=== PATIENT | female | born 1985 | race Caucasian/White ===

== ENCOUNTER 2018-05-24 21:39 | Emergency (ER) | payer SELFPAY ==
[2018-05-24] MEDS ORDERED: Sodium Chloride 0.9% 1,000 ML IV ONE (22:17)
--- NOTE | 2018-05-24 22:39 | PCM.RRT ---
INFO PRINT PRESS OPERATOR Nurses Assessment - Situation Date: 05/24/18 INFO PRINT PRESS OPERATOR Location:: Psych INFO PRINT PRESS OPERATOR Reason for Call: Change in Mental Status INFO PRINT PRESS OPERATOR Called By: RN IMagenReason for INFO PRINT PRESS OPERATOR - A) Acute Change in Patient: (Select all that apply): Staff member or family is worried about patient ( patient fainted ) - Neurological Status (Select all that apply): Alert, Responsive, Oriented, Verbal, Follows Commands - Respiratory Oxygen Delivery Method: Room Air - Constitutional Appears: Non-toxic, No Acute Distress, Agitated (crying) - Head Head Exam: ATRAUMATIC (non-tender), NORMOCEPHALIC - Eyes Eye Exam: Normal appearance. absent: Scleral icterus - Respiratory Exam Respiratory Exam: NORMAL BREATHING PATTERN. 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 While she was working, she was reaching to pour water for a patient when she felt dizzy and then syncopized. She landed on the right side of her face, per the [facility] patient that witnessed the fall. She states that she feels fine and is no longer dizzy. Denies any pain. She is upset because her blood pressure is elevated at 150/101. Patient was AAOx3. Decision was made to transfer patient to ED for further testing. Patient transported down to ED by wheel chair. Ramon Love PGY2
[2018-05-24 22:52] LABS: BASO % 0.4 % (0.0-2.0); EOS # 0.1 K/uL (0.0-0.7); EOS % 1.1 % (0.0-4.0); HEMOGLOBIN 10.5 g/dL (11.0-16.0); LYMPH # 2.6 K/uL (1.0-4.3); LYMPH % 29.9 % (20.0-40.0); MEAN CELL VOLUME 82.6 fL (81.0-99.0); MEAN CORPUSCULAR HEMOGLOBIN 28.9 pg (27.0-31.0); MEAN PLATELET VOLUME 8.8 fL (7.2-11.7); MONO # 0.5 K/uL (0.0-0.8); MONO % 6.2 % (0.0-10.0); NEUT # 5.4 K/uL (1.8-7.0); NEUT % 62.4 % (50.0-75.0); NRBC % 0.1 % (0.0-2.0); RBC 3.62 Mil/uL (3.80-5.20); RED CELL DISTRIBUTION WIDTH 14.4 % (11.5-14.5); WHITE BLOOD COUNT 8.7 K/uL (4.8-10.8)
[2018-05-24 23:04] LABS: ALB/GLOB RATIO 1.1 (1.0-2.1); ALBUMIN 3.5 g/dL (3.5-5.0); ALT/SGPT 23 U/L (9-52); AST/SGOT 11 U/L (14-36); BLOOD UREA NITROGEN 10 mg/dL (7-17); CALCIUM 8.9 mg/dl (8.6-10.4); GFR NON-AFRICAN AMERICAN > 60
[2018-05-24 23:14] VITALS: RESP 16
[2018-05-25 01:05] VITALS: BP 117/74; PULSE 85; TEMP 97.4; O2SAT 99
--- NOTE | 2018-05-25 05:05 | C.PDOC ---
History Of Present Illness 32 year old female presents to the ED for evaluation after she had a syncopal episode today. Patient works at [employer] and her syncopal episode was witnessed. Patient regained consciousness within a few seconds. She currently states that she feels "tired." Patient is currently 20 weeks ; she is . Patient has had full LAND LEASING EXAMINER follow up for with no complications. She denies headache, chest pain, shortness of breath. Chief Complaint (Nursing): Syncope History Per: Patient History/Exam Limitations: no limitations Onset/Duration Of Symptoms: Hrs Current Symptoms Are (Timing): Better Number Of Syncopal Episodes: 1 Associated Symptoms Preceding Syncopal Episode: No Predromal Symptoms (Sudden Onset) Additional History Per: Patient Past Medical History Reviewed: Historical Data, Nursing Documentation, Vital Signs Vital Signs: Last Vital Signs Temp 97.4 F L 05/25/18 01:04 Pulse 85 05/25/18 01:04 Resp 16 05/25/18 01:04 BP 117/74 05/25/18 01:04 Pulse Ox 99 05/25/18 05:08 - Medical History PMH: No Chronic Diseases Denies: Chronic Kidney Disease Surgical History: No Surg Hx Family History: States: Unknown Family Hx - Social History Hx Alcohol Use: No Hx Substance Use: No - Immunization History Hx Tetanus Toxoid Vaccination: No Hx Influenza Vaccination: Yes Hx Pneumococcal Vaccination: No Review Of Systems Cardiovascular: Negative for: Chest Pain Respiratory: Negative for: Shortness of Breath Neurological: Positive for: Other (syncope ). Negative for: Headache Physical Exam - Physical Exam Appears: Non-toxic, No Acute Distress Skin: Normal Color, Warm, Dry Head: Atraumatic, Normacephalic Eye(s): bilateral: Normal Inspection Oral Mucosa: Moist Neck: Supple Chest: Symmetrical, No Deformity, No Tenderness Cardiovascular: Rhythm Regular, No Murmur Respiratory: Normal Breath Sounds, No Rales, No Rhonchi, No Wheezing Gastrointestinal/Abdominal: Soft, No Tenderness, No Guarding, No Rebound Extremity: Normal ROM, Capillary Refill (less than 2 seconds ) Neurological/Psych: Oriented x3, Normal Speech, Normal Cognition ED Course And Treatment - Laboratory Results Result Diagrams: 05/24/18 22:46 05/24/18 22:46 O2 Sat by Pulse Oximetry: 99 (on RA) Pulse Ox Interpretation: Normal Medical Decision Making Medical Decision Making: Impression: 32 year old female s/p syncopal episode Progress: Bloodwork, urinalysis, OB ultrasound, EKG ordered and reviewed. IV fluids given. heart tone found to be 143 (performed by me). On re-exam, patient is resting comfortably, showing no signs of distress and reports an improvement in her symptoms. Patient is stable for discharge. She is advised to follow up with her LAND LEASING EXAMINER within 1-2 days for further evaluation and/ or return to the ED if symptoms persist or worsen. Disposition - Disposition Referrals: [facility], [Non-Staff] - Disposition: HOME/ ROUTINE Disposition Time: 01:00 Condition: IMPROVED Additional Instructions: WESLEY QUIROZ, thank you for letting us take care of you today. The emergency medical care you received today was directed at your acute symptoms. If you were prescribed any medication, please fill it and take as directed. It may take several days for your symptoms to resolve. Return to the Emergency Department if your symptoms worsen, do not improve, or if you have any other problems. Please contact your doctor or call one of the physicians/clinics you have been referred to that are listed on the Patient Visit Information form that is included in your discharge packet. Bring any paperwork you were given at discharge with you along with any medications you are taking to your follow up visit. Our treatment cannot replace ongoing medical care by a primary care provider outside of the emergency department. Thank you for allowing the [facility] team to be part of your care today. You were dehydrated. Please continue to drink fluids throughout the day to maintain hydration. Follow up with your LAND LEASING EXAMINER doctor in 2-3 days for re-evaluation and further management. Instructions: Syncope (Fainting) (DC), - The Fifth Month Forms: Giveter (Korean), Work Excuse - Clinical Impression Clinical Impression: Syncope - Scribe Statement The provider has reviewed the documentation as recorded by the Scribe (Mary Jane Clement) Provider Attestation: All medical record entries made by the Scribe were at my direction and personally dictated by me. I have reviewed the chart and agree that the record accurately reflects my personal performance of the history, physical exam, medical decision making, and the department course for this patient. I have also personally directed, reviewed, and agree with the discharge instructions and disposition.
--- NOTE | 2018-05-25 09:16 | US ---
Date of service: 05/24/2018 PROCEDURE: Obstetrical ultrasound examination HISTORY: syncopy COMPARISON: Not available TECHNIQUE: Transabdominal and transvaginal FINDINGS: The examination demonstrates a single live intrauterine gestation in vertex presentation. The heart rate is 141 beats per minute. A normal quantity of amniotic fluid is visualized. A normal posterior placenta is identified. There is no evidence of placenta previa. The cervix is closed and measures 4.3 cm in length. biometry yields a gestational age of 22 weeks 2 days. AMANDA by ultrasound is 09/25/2018. The EFW is 477.63 g. Limited review of anatomy demonstrates fluid distending the stomach and urinary bladder. Two normal kidneys are demonstrated without evidence of hydronephrosis. A three-vessel umbilical cord is demonstrated. The anterior abdominal wall is intact. There is no abnormality of the spine demonstrated. IMPRESSION: Single live intrauterine gestation of approximately 22 weeks 2 days gestational age without gross anatomic abnormality. Full anatomic evaluation was not performed at this time. AMANDA by ultrasound is 09/25/2018. Vertex presentation. Cervix long and closed. Posterior placenta. No previa. Normal amniotic fluid volume. The preliminary findings for this examination were reported by [facility] at 12:54 a.m. on 05/25/2018. There is concurrence of this report with the preliminary findings.
--- NOTE | 2018-05-25 19:47 | CARD ---
APPROVED REPORT Date of service: 05/24/2018 EKG Measurement Heart [id number] <Conclusion> Normal sinus rhythm Normal ECG
== END 2018-05-25 01:04 | disposition home or self-care (01) ==
LOC: C.ER 21:39
DX: O26.892 Other specified pregnancy related conditions, second trimester (principal); R55 Syncope and collapse; Z3A.22 22 weeks gestation of pregnancy
CPT/HCPCS: 76815; 80053; 82948; 84484; 85025; 93005; 96360; 99285; J7030

== ENCOUNTER 2018-09-12 12:10 | Inpatient (IN) | payer OTHER ==
[2018-09-10 08:30] VITALS: BMI 34.1
[2018-09-12] MEDS ORDERED: Lactated Ringer's 1,000 ML IV SCH (15:45)
--- NOTE | 2018-09-12 16:05 | CP.PCM.CON ---
<Evelyn Gaffney - Last Filed: 09/12/18 16:53> History of Present Illness - History of Present Illness History of Present Illness: Neurology consult for evaluation of history of syncopal event. Patient is a 33 year old female with her 4th child at 37 weeks gestation, going to OR tomorrow for her 4th . Patient reported a history of an isolated syncopal event in April,. 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 Pt reports she had insufficient fluid intake that day evidenced by zero urine output since starting shift. Pt reports she hit her head on a computer during event, denies incontinence or post ictal state s/p. Pt was subsequently evaluated in the ED, rehydrated with IVF and discharged with resolution of symptoms and a diagnosis of dehydration. Pt reports that her has been unremarkable thus far. Pt has made efforts to stay well hydrated, maintained appropriate care, complied with /gastric bypass vitamins as directed. Denies headache, dizziness, vision changes, chest pain, SOB, nausea, vomiting PMHx: denies PSHx: gastric bypass(2016), 3 c-sections(repeat after initial breach) Allergies: Denies Meds: /gastric bypass vitamins SocHx: denies alcohol/tobacco/drug use FamHx: HTN, CAD Review of Systems - Constitutional Constitutional: absent: Headache - EENT Eyes: absent: Blurred Vision - Cardiovascular Cardiovascular: absent: Chest Pain, Leg Edema, Syncope - Respiratory Respiratory: absent: Dyspnea - Gastrointestinal Gastrointestinal: absent: Diarrhea, Vomiting - Genitourinary Genitourinary: absent: Urinary Incontinence - Neurological Neurological: absent: Dizziness, Frequent Falls, Headaches, Weakness Past Patient History - Infectious Disease Hx of Infectious Diseases: None - Past Medical History & Family History Past Medical History?: No - Past Social History Smoking Status: Never Smoked - CARDIAC Hx Cardiac Disorders: No - PULMONARY Hx Respiratory Disorders: No - NEUROLOGICAL Hx Neurological Disorder: No - HEENT Hx HEENT Problems: No - RENAL Hx Chronic Kidney Disease: No - ENDOCRINE/METABOLIC Hx Endocrine Disorders: No - HEMATOLOGICAL/ONCOLOGICAL Hx Blood Disorders: No - INTEGUMENTARY Hx Dermatological Problems: No - MUSCULOSKELETAL/RHEUMATOLOGICAL Hx Musculoskeletal Disorders: No - GASTROINTESTINAL Hx Gastrointestinal Disorders: No - GENITOURINARY/GYNECOLOGICAL Hx Genitourinary Disorders: No - PSYCHIATRIC Hx Psychophysiologic Disorder: No Hx Substance Use: No - SURGICAL HISTORY Hx Surgeries: Yes Hx Section: Yes (X3) Hx Gastric Bypass Surgery: Yes (2016) - ANESTHESIA Hx Anesthesia: Yes Hx Anesthesia Reactions: No Hx Malignant Hyperthermia: No Meds Allergies/Adverse Reactions: Allergies Allergy/AdvReac Type Severity Reaction Status Date / Time No Known Allergies Allergy Verified 09/10/18 08:30 - Medications Medications: Current Medications Lactated Ringer's (Lactated Ringer's) 1,000 mls @ 125 mls/hr IV .Q8H CRESENCIO Physical Exam - Constitutional Appears: Non-toxic, No Acute Distress - Head Exam Head Exam: ATRAUMATIC, NORMAL INSPECTION, NORMOCEPHALIC - Eye Exam Eye Exam: EOMI, Normal appearance - ENT Exam ENT Exam: Mucous Membranes Moist, Normal Exam - Neck Exam Neck exam: Positive for: Normal Inspection - Respiratory Exam Respiratory Exam: NORMAL BREATHING PATTERN. absent: Respiratory Distress - Cardiovascular Exam Cardiovascular Exam: REGULAR RHYTHM, +S1, +S2 - GI/Abdominal Exam GI & Abdominal Exam: Soft. absent: Distended - Extremities Exam Extremities exam: Positive for: normal inspection, pedal edema (1+ pitting edema B/L LE), pedal pulses present. Negative for: calf tenderness - Neurological Exam Neurological exam: Alert, Normal Gait, Oriented x3 - Psychiatric Exam Psychiatric exam: Normal Affect, Normal Mood - Skin Skin Exam: Dry, Intact, Normal Color, Warm Assessment & Plan - Assessment and Plan (Free Text) Assessment: Neuro consult for 33 year old female at 37 weeks gestation with history of syncopal event in April, Plan: -syncopal event most likely 2/2 dehydration; pt denies prior syncopal episode, no history of seizures, atherosclerotic disease, TINAEJRO, dizziness -orthostatics negative -f/u EEG -f/u Carotid Dopplers -IVF -medical management per L&D Case discussed with Dr. Chan -Evelyn Gaffney, PGY-1 <Placido Chan - Last Filed: 09/13/18 16:46> Meds - Medications Medications: Current Medications Ferrous Sulfate (Feosol) 325 mg PO ONCE ONE Stop: 09/13/18 16:51 Lactated Ringer's (Lactated Ringer's) 1,000 mls @ 125 mls/hr IV .Q8H CRESENCIO Results - Labs Result Diagrams: 09/13/18 08:09 09/12/18 16:57 Labs: Laboratory Results - last 24 hr 09/12/18 09/12/18 09/12/18 16:57 16:57 16:57 WBC 7.6 RBC 3.59 L Hgb 9.5 L Hct 28.7 L MCV 80.0 L MCH 26.6 L MCHC 33.2 RDW 12.7 Plt Count 179 MPV 9.7 Neut % (Auto) 62.8 Lymph % (Auto) 29.0 [place] % (Auto) 7.1 Eos % (Auto) 0.5 Baso % (Auto) 0.6 Neut # (Auto) 4.8 Lymph # (Auto) 2.2 [place] # (Auto) 0.5 Eos # (Auto) 0.0 Baso # (Auto) 0.0 Sodium Potassium Chloride Carbon Dioxide Anion Gap BUN Creatinine Est GFR ( Amer) Est GFR (Non-Af Amer) Random Glucose Calcium Total Bilirubin AST ALT Alkaline Phosphatase Total Protein Albumin Globulin Albumin/Globulin Ratio Urine Color Yellow Urine Clarity Clear Urine pH 5.0 Ur Specific [place] 1.024 Urine Protein Negative Urine Glucose (UA) Normal Urine Ketones 1+ H Urine Blood Negative Urine Nitrate Negative Urine Bilirubin Negative Urine Urobilinogen 2.0 H Ur Leukocyte Esterase Trace Urine WBC (Auto) 2 Urine RBC (Auto) 1 Ur Squamous Epith Cells 2 Urine Bacteria Occ H RPR HIV 1&2 Antibody Screen Blood Type O POSITIVE Antibody Screen Negative 09/12/18 09/12/18 09/12/18 16:57 16:57 16:57 WBC RBC Hgb Hct MCV MCH MCHC RDW Plt Count MPV Neut % (Auto) Lymph % (Auto) [place] % (Auto) Eos % (Auto) Baso % (Auto) Neut # (Auto) Lymph # (Auto) [place] # (Auto) Eos # (Auto) Baso # (Auto) Sodium 136 Potassium 3.6 Chloride 106 Carbon Dioxide 22 Anion Gap 12 BUN 11 Creatinine 0.4 L Est GFR ( Amer) > 60 Est GFR (Non-Af Amer) > 60 Random Glucose 84 Calcium 8.6 Total Bilirubin 0.5 AST 17 ALT 15 Alkaline Phosphatase 120 Total Protein 6.6 Albumin 3.2 L Globulin 3.4 Albumin/Globulin Ratio 1.0 Urine Color Urine Clarity Urine pH Ur Specific [place] Urine Protein Urine Glucose (UA) Urine Ketones Urine Blood Urine Nitrate Urine Bilirubin Urine Urobilinogen Ur Leukocyte Esterase Urine WBC (Auto) Urine RBC (Auto) Ur Squamous Epith Cells Urine Bacteria RPR Nonreactive HIV 1&2 Antibody Screen Negative Blood Type Antibody Screen 09/13/18 08:09 WBC 7.0 RBC 3.50 L Hgb 9.5 L Hct 28.4 L MCV 81.3 MCH 27.2 MCHC 33.5 RDW 13.1 Plt Count 167 MPV 9.7 Neut % (Auto) 59.3 Lymph % (Auto) 32.2 [place] % (Auto) 7.4 Eos % (Auto) 0.8 Baso % (Auto) 0.3 Neut # (Auto) 4.1 Lymph # (Auto) 2.2 [place] # (Auto) 0.5 Eos # (Auto) 0.1 Baso # (Auto) 0.0 Sodium Potassium Chloride Carbon Dioxide Anion Gap BUN Creatinine Est GFR ( Amer) Est GFR (Non-Af Amer) Random Glucose Calcium Total Bilirubin AST ALT Alkaline Phosphatase Total Protein Albumin Globulin Albumin/Globulin Ratio Urine Color Urine Clarity Urine pH Ur Specific [place] Urine Protein Urine Glucose (UA) Urine Ketones Urine Blood Urine Nitrate Urine Bilirubin Urine Urobilinogen Ur Leukocyte Esterase Urine WBC (Auto) Urine RBC (Auto) Ur Squamous Epith Cells Urine Bacteria RPR HIV 1&2 Antibody Screen Blood Type Antibody Screen Attending/Attestation - Attestation I have personally seen and examined this patient.: Yes I have fully participated in the care of the patient.: Yes I have reviewed all pertinent clinical information: Yes Notes (Text): 09/13/18 16:46 I agree with the assessment and plan. The EEG was done and is normal. The patient is cleared from a neurological perspective for . Thank you.
[2018-09-12 17:03] LABS: BASO % 0.6 % (0.0-2.0); EOS % 0.5 % (0.0-4.0); HEMOGLOBIN 9.5 g/dL (11.0-16.0); LYMPH # 2.2 K/uL (1.0-4.3); MEAN CORPUSCULAR HEMOGLOBIN 26.6 pg (27.0-31.0); MEAN CORPUSCULAR HGB CONC 33.2 g/dL (33.0-37.0); MEAN PLATELET VOLUME 9.7 fL (7.2-11.7); MONO # 0.5 K/uL (0.0-0.8); MONO % 7.1 % (0.0-10.0); NEUT # 4.8 K/uL (1.8-7.0); NEUT % 62.8 % (50.0-75.0); RBC 3.59 Mil/uL (3.80-5.20); RED CELL DISTRIBUTION WIDTH 12.7 % (11.5-14.5); WHITE BLOOD COUNT 7.6 K/uL (4.8-10.8)
[2018-09-12 17:23] LABS: SQUAMOUS EPITHIAL 2 /hpf (0-5); URINE BACTERIA OCC (<OCC); URINE BILIRUBIN NEGATIVE (NEGATIVE); URINE BLOOD NEGATIVE (NEGATIVE); URINE CLARITY Clear (Clear); URINE COLOR Yellow (YELLOW); URINE GLUCOSE (UA) NORMAL (Normal); URINE LEUKOCYTE ESTERASE TRACE Leu/uL (Negative); URINE PROTEIN NEGATIVE (NEGATIVE)
[2018-09-12 17:36] LABS: ALBUMIN 3.2 g/dL (3.5-5.0); ALT/SGPT 15 U/L (9-52); AST/SGOT 17 U/L (14-36); BLOOD UREA NITROGEN 11 mg/dL (7-17); CALCIUM 8.6 mg/dl (8.6-10.4); GFR NON-AFRICAN AMERICAN > 60
--- NOTE | 2018-09-12 21:05 | OBHP ---
Datetime: 09/12/2018 15:36 IP Adm Impression: Term, intrauterine ; No Active Labor; Intact Membranes IP Admit Plan: Admit to unit; Initiate Section protocol Admit Comment, IP Provider: Patient is a 33 year old at 37w2d AMANDA 10/01/18 who presents to the unit for scheduled repeat section on 09/[address] Chamberlain. Patient is doing well, offer s no complaints at this time. She endorses +FM, denies CTX, VB, or LOF. Denies headaches, dizziness, CP, palpitations, SOB, abdominal pain, urinary symptoms, changes in bowel habits. Issues: Syncopal episode x 1 OB Hx: 1. 2005 PLTCS 2/2 breech presentation, female , 9lbs 12oz, no complications 2. 2008 RLTCS at term, male infant, 8lbs 10oz, no complications 3. 2011 SAB with D+C at 14 weeks 4. 2016 RLTCS at term, female infant, 6lbs 12oz, no complications 5. Current [employer] Hx: LMP 11/22/17 [facility]: 13/irregular/4 days Denies history of fibroids, STDs History of PCOS Allergies: NKDA Medications: PNV Medical History: Denies Surgical History: Gastric Bypass in 2015, C/S x 3 Social History: Denies alcohol, tobacco, drug use Family History: Mother - hypertension; Father - hypertension PE: See above A/P: Patient is a 33 year old at 37w2d who presents for scheduled repeat section in am; with history of syncopal episode and admitted today for cardiology evaluation and medical kolby oleksandr for Surgery -Admit to labor and delivery unit, per Dr. Chamberlain -NST Reactive. No contractions -Admission labs - CBC, CMP, T+S, UA, RPR, HIV -Anemia: last Hgb 9.3/29.0, Type and cross ordered, as per Dr. Chamberlain -LR at 125cc/hr -NPO past midnight -Cardiology consult ordered for clearance, Dr Irvin, help appreciated -Requesting Echocardiogram, carotid dopplers, orthostatic vital signs, Neurology evaluation and or dered -Plan discussed with Dr Cornelio Harris DO PGY-2 Pelvic Type - PN: Adequate Extremities - PN: Normal Abdomen - PN: Normal Back - PN: Normal Breast - PN: Not Done Lungs - PN: Normal Heart - PN: Normal Thyroid - PN: Normal Neurologic - PN: Normal HEENT - PN: Normal General - PN: Normal Presentation-Admit: Vertex FHR - Baseline A Provider: 130 Membranes, Provider: Intact Contraction Comments Provider: none Comments, ACOG Physical Exam: VSS Gen: AAOx3, no acute distress CV: +S1, S2, No murmurs/rubs/gallops Lungs: CTA B/L Abd: Soft, gravid Ext: No clubbing, cyanosis, edema Gestation - Est Wks by US: 37.2 EGA AdmitDate IP: 37.2 Vital Signs Provider: Reviewed IP Chief Complaint: Scheduled Section NICHD Variability Prov Fetus A: Moderate 6-25bpm NICHD Accel Fetus A IP Provider: [id number] FHR Category Provider Fetus A: Category I NICHD Decel Fetus A IP Provider: None Genitourinary Exam: Normal DTRs - PN: Normal
--- NOTE | 2018-09-12 21:18 | OBPN ---
Datetime: 09/12/2018 18:04 IP Progress Impression: Reactive non-stress test IP Informed Consent Obtain: Section Delivery IP Progress Plan: Continue present management Membranes, Provider: Intact Contraction Comments Provider: None FHR - Baseline A Provider: 120 IP Progress Note Comment: Pt seen. No c/o's. + FM. Reactive strip. No contractions Awaiting Cardiology and Neurology consultation notes Blood transfusion of one Unit was ordered and still pending D/W Dr. Chamberlain and she decided to cancel her C/S in AM, Keep patient overnite on the monitor Will Order an MFM consultation with a BPP in AM after Cardiology and Neurology consultations and M edical clearance obtained If OK with MFM, will re-schedule her Repeat C/S in one more week. Pt aware of change of plan of care and verbalized understanding Vital Signs Provider: Reviewed; Within Normal Limits NICHD Accel Fetus A IP Provider: [id number] FHR Category Provider Fetus A: Category I NICHD Variability Prov Fetus A: Moderate 6-25bpm NICHD Decel Fetus A IP Provider: None Datetime: 09/12/2018 15:36 Gestation - Est Wks by US: 37.2 Presentation-Admit: Vertex
--- NOTE | 2018-09-12 21:44 | CP.PCM.CON ---
History of Present Illness - History of Present Illness History of Present Illness: Cardiology consult: Pre Op cardiac risk assessment Patient is a 33 year old female with her 4th child at 37 weeks gestation, going to OR tomorrow for her 4th . Patient reported a history of an isolated syncopal event in April,. 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 Pt reports she had insufficient fluid intake that day evidenced by zero urine output since starting shift. Pt reports she hit her head on a computer during event, denies incontinence or post ictal state s/p. Pt was subsequently evaluated in the ED, rehydrated with IVF and discharged with resolution of symptoms and a diagnosis of dehydration. Pt reports that her has been unremarkable thus far. Pt has made efforts to stay well hydrated, maintained appropriate care, complied with /gastric bypass vitamins as directed. Denies headache, dizziness, vision changes, chest pain, SOB, nausea, vomiting PMHx: denies PSHx: gastric bypass(2016), 3 c-sections(repeat after initial breach) Allergies: Denies Meds: /gastric bypass vitamins SocHx: denies alcohol/tobacco/drug use FamHx: HTN, CAD Review of Systems - Constitutional Constitutional: absent: Headache - EENT Eyes: absent: Blurred Vision - Cardiovascular Cardiovascular: absent: Chest Pain, Leg Edema, Syncope - Respiratory Respiratory: absent: Dyspnea - Gastrointestinal Gastrointestinal: absent: Diarrhea, Vomiting - Genitourinary Genitourinary: absent: Urinary Incontinence - Neurological Neurological: absent: Dizziness, Frequent Falls, Headaches, Weakness Meds Allergies/Adverse Reactions: Allergies Allergy/AdvReac Type Severity Reaction Status Date / Time No Known Allergies Allergy Verified 09/10/18 08:30 - Medications Medications: Current Medications Lactated Ringer's (Lactated Ringer's) 1,000 mls @ 125 mls/hr IV .Q8H CRESENCIO Physical Exam - Constitutional Appears: Non-toxic, No Acute Distress - Head Exam Head Exam: ATRAUMATIC, NORMAL INSPECTION, NORMOCEPHALIC - Eye Exam Eye Exam: EOMI, Normal appearance - ENT Exam ENT Exam: Mucous Membranes Moist, Normal Exam - Neck Exam Neck exam: Positive for: Normal Inspection - Respiratory Exam Respiratory Exam: NORMAL BREATHING PATTERN. absent: Respiratory Distress - Cardiovascular Exam Cardiovascular Exam: REGULAR RHYTHM, +S1, +S2 - GI/Abdominal Exam GI & Abdominal Exam: Soft. absent: Distended - Extremities Exam Extremities exam: Positive for: normal inspection, pedal edema (1+ pitting edema B/L LE), pedal pulses present. Negative for: calf tenderness - Neurological Exam Neurological exam: Alert, Normal Gait, Oriented x3 - Psychiatric Exam Psychiatric exam: Normal Affect, Normal Mood - Skin Skin Exam: Dry, Intact, Normal Color, Warm Assessment & Plan - Assessment and Plan (Free Text) Assessment: Syncope x 1 in April No Cardiac history in the past ECHO: Normal EF Carotids: Normal EKG: NSR The episode of syncope most likely non cardiogenic This patient assessed as low to moderate cardiac risk for under anaesthesia Thank you. Will follow Past Patient History - Infectious Disease Hx of Infectious Diseases: None - Past Medical History & Family History Past Medical History?: No - Past Social History Smoking Status: Never Smoked - CARDIAC Hx Cardiac Disorders: No - PULMONARY Hx Respiratory Disorders: No - NEUROLOGICAL Hx Neurological Disorder: No - HEENT Hx HEENT Problems: No - RENAL Hx Chronic Kidney Disease: No - ENDOCRINE/METABOLIC Hx Endocrine Disorders: No - HEMATOLOGICAL/ONCOLOGICAL Hx Blood Disorders: No - INTEGUMENTARY Hx Dermatological Problems: No - MUSCULOSKELETAL/RHEUMATOLOGICAL Hx Musculoskeletal Disorders: No - GASTROINTESTINAL Hx Gastrointestinal Disorders: No - GENITOURINARY/GYNECOLOGICAL Hx Genitourinary Disorders: No - PSYCHIATRIC Hx Psychophysiologic Disorder: No Hx Substance Use: No - SURGICAL HISTORY Hx Surgeries: Yes Hx Section: Yes (X3) Hx Gastric Bypass Surgery: Yes (2016) - ANESTHESIA Hx Anesthesia: Yes Hx Anesthesia Reactions: No Hx Malignant Hyperthermia: No Meds Allergies/Adverse Reactions: Allergies Allergy/AdvReac Type Severity Reaction Status Date / Time No Known Allergies Allergy Verified 09/10/18 08:30 - Medications Medications: Current Medications Lactated Ringer's (Lactated Ringer's) 1,000 mls @ 125 mls/hr IV .Q8H CRESENCIO Results - Labs Result Diagrams: 09/12/18 16:57 09/12/18 16:57 Labs: Laboratory Results - last 24 hr 09/12/18 09/12/18 09/12/18 16:57 16:57 16:57 WBC 7.6 RBC 3.59 L Hgb 9.5 L Hct 28.7 L MCV 80.0 L MCH 26.6 L MCHC 33.2 RDW 12.7 Plt Count 179 MPV 9.7 Neut % (Auto) 62.8 Lymph % (Auto) 29.0 [place] % (Auto) 7.1 Eos % (Auto) 0.5 Baso % (Auto) 0.6 Neut # (Auto) 4.8 Lymph # (Auto) 2.2 [place] # (Auto) 0.5 Eos # (Auto) 0.0 Baso # (Auto) 0.0 Sodium Potassium Chloride Carbon Dioxide Anion Gap BUN Creatinine Est GFR ( Amer) Est GFR (Non-Af Amer) Random Glucose Calcium Total Bilirubin AST ALT Alkaline Phosphatase Total Protein Albumin Globulin Albumin/Globulin Ratio Urine Color Yellow Urine Clarity Clear Urine pH 5.0 Ur Specific [place] 1.024 Urine Protein Negative Urine Glucose (UA) Normal Urine Ketones 1+ H Urine Blood Negative Urine Nitrate Negative Urine Bilirubin Negative Urine Urobilinogen 2.0 H Ur Leukocyte Esterase Trace Urine WBC (Auto) 2 Urine RBC (Auto) 1 Ur Squamous Epith Cells 2 Urine Bacteria Occ H HIV 1&2 Antibody Screen Blood Type O POSITIVE Antibody Screen Negative 09/12/18 09/12/18 16:57 16:57 WBC RBC Hgb Hct MCV MCH MCHC RDW Plt Count MPV Neut % (Auto) Lymph % (Auto) [place] % (Auto) Eos % (Auto) Baso % (Auto) Neut # (Auto) Lymph # (Auto) [place] # (Auto) Eos # (Auto) Baso # (Auto) Sodium 136 Potassium 3.6 Chloride 106 Carbon Dioxide 22 Anion Gap 12 BUN 11 Creatinine 0.4 L Est GFR ( Amer) > 60 Est GFR (Non-Af Amer) > 60 Random Glucose 84 Calcium 8.6 Total Bilirubin 0.5 AST 17 ALT 15 Alkaline Phosphatase 120 Total Protein 6.6 Albumin 3.2 L Globulin 3.4 Albumin/Globulin Ratio 1.0 Urine Color Urine Clarity Urine pH Ur Specific [place] Urine Protein Urine Glucose (UA) Urine Ketones Urine Blood Urine Nitrate Urine Bilirubin Urine Urobilinogen Ur Leukocyte Esterase Urine WBC (Auto) Urine RBC (Auto) Ur Squamous Epith Cells Urine Bacteria HIV 1&2 Antibody Screen Negative Blood Type Antibody Screen
[2018-09-13 08:14] LABS: BASO % 0.3 % (0.0-2.0); EOS # 0.1 K/uL (0.0-0.7); EOS % 0.8 % (0.0-4.0); HEMOGLOBIN 9.5 g/dL (11.0-16.0); LYMPH # 2.2 K/uL (1.0-4.3); LYMPH % 32.2 % (20.0-40.0); MEAN CELL VOLUME 81.3 fL (81.0-99.0); MEAN CORPUSCULAR HEMOGLOBIN 27.2 pg (27.0-31.0); MEAN CORPUSCULAR HGB CONC 33.5 g/dL (33.0-37.0); MEAN PLATELET VOLUME 9.7 fL (7.2-11.7); MONO # 0.5 K/uL (0.0-0.8); MONO % 7.4 % (0.0-10.0); NEUT # 4.1 K/uL (1.8-7.0); NEUT % 59.3 % (50.0-75.0); NRBC % 0.1 % (0.0-2.0); RBC 3.5 Mil/uL (3.80-5.20); RED CELL DISTRIBUTION WIDTH 13.1 % (11.5-14.5)
--- NOTE | 2018-09-13 12:05 | VASCLAB ---
Date of service: 09/12/2018 PROCEDURE: Carotid Duplex Exam. HISTORY: Cardiac clearance; Hx of syncope COMPARISON: None available. TECHNIQUE: Grayscale and duplex Doppler evaluation of the cervical carotid and vertebral arteries were performed. The common carotid, carotid bifurcations and cervical Internal Carotid Artery (ICA) and proximal External Carotid Artery (ECA) were evaluated. The vertebral arteries were evaluated for gross patency and flow direction. Report prepared by Avery Miller, BS, RVT FINDINGS: RIGHT CAROTID ARTERIES: 1. Common Carotid Artery: No significant focal plaque formation of the right common carotid artery. Maximum Peak Systolic velocity: 81 cm/sec: End-diastolic velocity 21 cm/sec. 2. Carotid Bifurcation: plaque formation. Maximum Peak Systolic velocity: 81 cm/sec: End-diastolic velocity 24 cm/sec. 3. Internal Carotid Artery: Plaque description: 3.1. Proximal Segment: Peak systolic velocity 60 cm/sec: End-diastolic velocity 24 cm/sec - % stenosis 0-15% 3.2. Middle Segment: Peak systolic velocity 76 cm/sec: End-diastolic velocity 34 cm/sec - % stenosis 0-15% 3.3. Distal Segment: Peak systolic velocity 59 cm/sec: End-diastolic velocity 32 cm/sec - % stenosis 0-15% 4. External Carotid Artery: No significant focal plaque formation. Peak systolic velocity 93 cm/sec 5. ICA/CCA Ratio: 1.0 LEFT CAROTID ARTERIES: 1. Common Carotid Artery: No significant focal plaque formation of the left common carotid artery. Maximum Peak Systolic velocity: 91 cm/sec: End-diastolic velocity 34 cm/sec. 2. Carotid Bifurcation: plaque formation. Maximum Peak Systolic velocity: 82 cm/sec: End-diastolic velocity 28 cm/sec. 3. Internal Carotid Artery: Plaque description: 3.1. Proximal Segment: Peak systolic velocity 78 cm/sec: End-diastolic velocity 29 cm/sec - % stenosis 0-15% 3.2. Middle Segment: Peak systolic velocity 89 cm/sec: End-diastolic velocity 38 cm/sec - % stenosis 0-15% 3.3. Distal Segment: Peak systolic velocity 74 cm/sec: End-diastolic velocity 34 cm/sec - % stenosis 0-15% 4. External Carotid Artery: No significant focal plaque formation. Peak systolic velocity 73 cm/sec 5. ICA/CCA Ratio: 1.0 VERTEBRAL ARTERIES: 1. Right Vertebral Artery: The right vertebral artery flow direction is antegrade. 2. Left Vertebral Artery: The left vertebral artery flow direction is antegrade. OTHER FINDINGS: 1. Right Brachial Blood pressure: 122 mmHg. 2. Left Brachial Blood pressure: 104 mmHg. 3. No atherosclerotic calcification present IMPRESSION: RIGHT: Duplex scan does not suggest hemodynamically significant stenosis of the right extracranial carotid arteries. LEFT: Duplex scan does not suggest hemodynamically significant stenosis of the left extracranial carotid arteries.
--- NOTE | 2018-09-13 16:36 | CP.PCM.CON ---
History of Present Illness - History of Present Illness History of Present Illness: Neurology Consultation Note: Mrs. York is a 33-year-old woman with no significant past medical history, who is going for her 4th tomorrow and reported a previous syncopal episode that occurred during a moment of dehydration. She has not had any episodes since, and rehydration in the ED helped. This occurred about 4 months ago. Past Patient History - Infectious Disease Hx of Infectious Diseases: None - Past Medical History & Family History Past Medical History?: No - Past Social History Smoking Status: Never Smoked - CARDIAC Hx Cardiac Disorders: No - PULMONARY Hx Respiratory Disorders: No - NEUROLOGICAL Hx Neurological Disorder: No - HEENT Hx HEENT Problems: No - RENAL Hx Chronic Kidney Disease: No - ENDOCRINE/METABOLIC Hx Endocrine Disorders: No - HEMATOLOGICAL/ONCOLOGICAL Hx Blood Disorders: No - INTEGUMENTARY Hx Dermatological Problems: No - MUSCULOSKELETAL/RHEUMATOLOGICAL Hx Musculoskeletal Disorders: No - GASTROINTESTINAL Hx Gastrointestinal Disorders: No - GENITOURINARY/GYNECOLOGICAL Hx Genitourinary Disorders: No - PSYCHIATRIC Hx Psychophysiologic Disorder: No Hx Substance Use: No - SURGICAL HISTORY Hx Surgeries: Yes Hx Section: Yes (X3) Hx Gastric Bypass Surgery: Yes (2016) - ANESTHESIA Hx Anesthesia: Yes Hx Anesthesia Reactions: No Hx Malignant Hyperthermia: No Meds Allergies/Adverse Reactions: Allergies Allergy/AdvReac Type Severity Reaction Status Date / Time No Known Allergies Allergy Verified 09/10/18 08:30 - Medications Medications: Current Medications Lactated Ringer's (Lactated Ringer's) 1,000 mls @ 125 mls/hr IV .Q8H CRESENCIO Results - Labs Result Diagrams: 09/13/18 08:09 09/12/18 16:57 Labs: Laboratory Results - last 24 hr 09/12/18 09/12/18 09/12/18 16:57 16:57 16:57 WBC 7.6 RBC 3.59 L Hgb 9.5 L Hct 28.7 L MCV 80.0 L MCH 26.6 L MCHC 33.2 RDW 12.7 Plt Count 179 MPV 9.7 Neut % (Auto) 62.8 Lymph % (Auto) 29.0 [place] % (Auto) 7.1 Eos % (Auto) 0.5 Baso % (Auto) 0.6 Neut # (Auto) 4.8 Lymph # (Auto) 2.2 [place] # (Auto) 0.5 Eos # (Auto) 0.0 Baso # (Auto) 0.0 Sodium Potassium Chloride Carbon Dioxide Anion Gap BUN Creatinine Est GFR ( Amer) Est GFR (Non-Af Amer) Random Glucose Calcium Total Bilirubin AST ALT Alkaline Phosphatase Total Protein Albumin Globulin Albumin/Globulin Ratio Urine Color Yellow Urine Clarity Clear Urine pH 5.0 Ur Specific [place] 1.024 Urine Protein Negative Urine Glucose (UA) Normal Urine Ketones 1+ H Urine Blood Negative Urine Nitrate Negative Urine Bilirubin Negative Urine Urobilinogen 2.0 H Ur Leukocyte Esterase Trace Urine WBC (Auto) 2 Urine RBC (Auto) 1 Ur Squamous Epith Cells 2 Urine Bacteria Occ H RPR HIV 1&2 Antibody Screen Blood Type O POSITIVE Antibody Screen Negative 09/12/18 09/12/18 09/12/18 16:57 16:57 16:57 WBC RBC Hgb Hct MCV MCH MCHC RDW Plt Count MPV Neut % (Auto) Lymph % (Auto) [place] % (Auto) Eos % (Auto) Baso % (Auto) Neut # (Auto) Lymph # (Auto) [place] # (Auto) Eos # (Auto) Baso # (Auto) Sodium 136 Potassium 3.6 Chloride 106 Carbon Dioxide 22 Anion Gap 12 BUN 11 Creatinine 0.4 L Est GFR ( Amer) > 60 Est GFR (Non-Af Amer) > 60 Random Glucose 84 Calcium 8.6 Total Bilirubin 0.5 AST 17 ALT 15 Alkaline Phosphatase 120 Total Protein 6.6 Albumin 3.2 L Globulin 3.4 Albumin/Globulin Ratio 1.0 Urine Color Urine Clarity Urine pH Ur Specific [place] Urine Protein Urine Glucose (UA) Urine Ketones Urine Blood Urine Nitrate Urine Bilirubin Urine Urobilinogen Ur Leukocyte Esterase Urine WBC (Auto) Urine RBC (Auto) Ur Squamous Epith Cells Urine Bacteria RPR Nonreactive HIV 1&2 Antibody Screen Negative Blood Type Antibody Screen 09/13/18 08:09 WBC 7.0 RBC 3.50 L Hgb 9.5 L Hct 28.4 L MCV 81.3 MCH 27.2 MCHC 33.5 RDW 13.1 Plt Count 167 MPV 9.7 Neut % (Auto) 59.3 Lymph % (Auto) 32.2 [place] % (Auto) 7.4 Eos % (Auto) 0.8 Baso % (Auto) 0.3 Neut # (Auto) 4.1 Lymph # (Auto) 2.2 [place] # (Auto) 0.5 Eos # (Auto) 0.1 Baso # (Auto) 0.0 Sodium Potassium Chloride Carbon Dioxide Anion Gap BUN Creatinine Est GFR ( Amer) Est GFR (Non-Af Amer) Random Glucose Calcium Total Bilirubin AST ALT Alkaline Phosphatase Total Protein Albumin Globulin Albumin/Globulin Ratio Urine Color Urine Clarity Urine pH Ur Specific [place] Urine Protein Urine Glucose (UA) Urine Ketones Urine Blood Urine Nitrate Urine Bilirubin Urine Urobilinogen Ur Leukocyte Esterase Urine WBC (Auto) Urine RBC (Auto) Ur Squamous Epith Cells Urine Bacteria RPR HIV 1&2 Antibody Screen Blood Type Antibody Screen
--- NOTE | 2018-09-13 17:57 | PCM.EEG ---
Electroencephalogram Report - Electroencephalogram Report Procedure Date: 09/13/18 Medication: None Interpretation: Technical Information: This was a 16 -channel EEG, 1-channel EKG routine EEG performed using an ASP64 machine. Electrodes were applied using the 10/20 international placement system. Start; 8;29 End; 8;50 Total; 22 minutes Clinical Information: syncope. During resting wakefulness there was a symmetric posterior dominant rhythm at 8. 5-9.5 Hz, 30-50 uV, which was reactive to eye opening and closing. Drowsiness was associated with fragmentation of the posterior dominant rhythm and with slow roving eye movements seen at 8;38. Light sleep was not recorded. Hyperventilation was not performed. Photic stimulation was performed and there were no changes on the record. Focal abnormality; none ECG was associated with a normal sinus rhythm. Impression: This is a normal awake and drowsy electroencephalogram. Conclusion: Normal EEG (Awake, Drowsy, and Asleep)
--- NOTE | 2018-09-13 19:58 | CARD ---
APPROVED REPORT Date of service: 09/12/2018 EXAM: Two-dimensional and M-mode echocardiogram with Doppler and color Doppler. INDICATION Syncope 2D DIMENSIONS IVSd1.0 (0.7-1.1cm)Aortic Root (2D)2.5 (2.0-3.7cm) LVDd4.6 (3.9-5.9cm)PWd1.1 (0.7-1.1cm) LA Sspber52 (18-58mL)LVDs3.4 (2.5-4.0cm) FS (%) 27.0 %LVEF (%)52.7 (>50%) IVC0.00 cm M-Mode DIMENSIONS RVDd2.23 (2.1-3.2cm)Left Atrium (MM)4.07 (2.5-4.0cm) IVSd0.76 (0.7-1.1cm)Aortic Root2.58 (2.2-3.7cm) LVDd5.25 (4.0-5.6cm)Aortic Cusp Exc.1.94 (1.5-2.0cm) PWd0.76 (0.7-1.1cm)FS (%) 27 % LVDs3.81 (2.0-3.8cm)TAPSE19.44 cm LVEF (%)53 (>50%) Mitral Valve MV E Odokgjip09.4cm/sMV A Eiakkygl53.2cm/sE/A ratio1.4 TDI Lateral E' Peak V16.18cm/sMedial E' Peak V13.49cm/sE/Lateral E'5.3 E/Medial E'6.3 Tricuspid Valve TR Peak Txgnfslk145mz/sTR Peak Gr.[id number] LEFT VENTRICLE The left ventricle is normal size. There is normal left ventricular wall thickness. The left ventricular function is normal. The left ventricular ejection fraction is within the normal range. No regional wall motion abnormalities noted. The left ventricular diastolic function is normal. No left ventricle thrombus noted on this study. There is no ventricular septal defect visualized. There is no left ventricular aneurysm. There is no mass noted in the left ventricle. RIGHT VENTRICLE The right ventricle is normal size. There is normal right ventricular wall thickness. The right ventricular systolic function is normal. ATRIA The left atrium size is normal. The right atrium size is normal. The interatrial septum is intact with no evidence for an atrial septal defect. AORTIC VALVE The aortic valve is normal in structure and function. No aortic regurgitation is present. There is no aortic valvular stenosis. There is no aortic valvular vegetation. MITRAL VALVE The mitral valve is normal in structure and function. There is no evidence of mitral valve prolapse. There is no mitral valve stenosis. There is no mitral valve regurgitation noted. TRICUSPID VALVE The tricuspid valve is normal in structure and function. There is mild tricuspid regurgitation. There is no tricuspid valve prolapse or vegetation. There is no tricuspid valve stenosis. PULMONIC VALVE The pulmonary valve is normal in structure and function. There is no pulmonic valvular regurgitation. There is no pulmonic valvular stenosis. GREAT VESSELS The aortic root is normal in size. The ascending aorta is normal in size. The pulmonary artery is normal. The IVC is normal in size and collapses >50% with inspiration. PERICARDIAL EFFUSION The pericardium appears normal. There is no pleural effusion. <Conclusion> The left ventricular function is normal. The left ventricular ejection fraction is within the normal range. No regional wall motion abnormalities noted.
[2018-09-13 21:08] VITALS: BP 125/78; PULSE 83; RESP 20; TEMP 97.9; O2SAT 100
== END 2018-09-13 17:05 | disposition home or self-care (01) | DRG 833 ==
LOC: C.EROB 12:10 → C.4D 14:43
PROVIDERS: ADMIT Obstetrics & Gynecology; ATTEND Obstetrics & Gynecology
DX: O16.3 Unspecified maternal hypertension, third trimester (principal); O34.211 Maternal care for low transverse scar from previous cesarean delivery; O99.843 Bariatric surgery status complicating pregnancy, third trimester; E28.2 Polycystic ovarian syndrome; Z53.8 Procedure and treatment not carried out for other reasons; Z86.79 Personal history of other diseases of the circulatory system; Z3A.37 37 weeks gestation of pregnancy

== ENCOUNTER 2018-09-20 08:24 | Inpatient (IN) | payer OTHER ==
[2018-09-20] MEDS ORDERED: Lactated Ringer's 1,000 ML IV ONE (09:18)
[2018-09-20] MEDS ORDERED: ceFAZolin 1 gm FROZEN Premix 2 GM/100 ML ML IVPB ONE (09:24)
[2018-09-20] MEDS ORDERED: Morphine 1 mg/ml preservative-free Inj(Duramorph) ONE (09:38)
[2018-09-20 09:40] LABS: BASO % 0.5 % (0.0-2.0); EOS # 0.1 K/uL (0.0-0.7); EOS % 0.8 % (0.0-4.0); HEMOGLOBIN 10.1 g/dL (11.0-16.0); LYMPH # 1.8 K/uL (1.0-4.3); LYMPH % 29.6 % (20.0-40.0); MEAN CELL VOLUME 81.5 fL (81.0-99.0); MEAN CORPUSCULAR HGB CONC 33.1 g/dL (33.0-37.0); MEAN PLATELET VOLUME 9.9 fL (7.2-11.7); MONO # 0.5 K/uL (0.0-0.8); MONO % 8.1 % (0.0-10.0); NEUT # 3.8 K/uL (1.8-7.0); RBC 3.75 Mil/uL (3.80-5.20); WHITE BLOOD COUNT 6.2 K/uL (4.8-10.8)
[2018-09-20] MEDS: Lactated Ringer's 1,000 ML IV SCH ×2 (09:40→23:30)
[2018-09-20 09:41] VITALS: BMI 36.3
[2018-09-20 09:44] LABS: SQUAMOUS EPITHIAL 35 /hpf (0-5); URINE BACTERIA OCC (<OCC); URINE BILIRUBIN NEGATIVE (NEGATIVE); URINE BLOOD NEGATIVE (NEGATIVE); URINE CLARITY Hazy (Clear); URINE COLOR Yellow (YELLOW); URINE GLUCOSE (UA) NORMAL (Normal); URINE LEUKOCYTE ESTERASE 1+ Leu/uL (Negative); URINE PROTEIN 1+ mg/dL (NEGATIVE); URINE UROBILINOGEN NORMAL mg/dL (0.2-1.0)
[2018-09-20 09:51] LABS: PROTHROMBIN TIME 11.4 SECONDS (9.7-12.2)
[2018-09-20 09:54] LABS: ALB/GLOB RATIO 1.1 (1.0-2.1); ALBUMIN 3.3 g/dL (3.5-5.0); ALT/SGPT 12 U/L (9-52); AST/SGOT 15 U/L (14-36); BLOOD UREA NITROGEN 11 mg/dL (7-17); CALCIUM 8.5 mg/dl (8.6-10.4); GFR NON-AFRICAN AMERICAN > 60
[2018-09-20] MEDS ORDERED: ceFAZolin IV 2 gm in Dextrose 2 GM/50 ML BAG IVPB ONE (10:00)
--- NOTE | 2018-09-20 10:00 | OBADHP ---
Datetime: 09/20/2018 09:30 Admit Comment, IP Provider: Thisis a private patient of Dr. Dania Chamberlain 33 y.o. , LMP unsure, AMANDA 10/01/18, EGA 38w 3d, prevoius C/S x 3 for elective repeat C/S. (+ ) AFM; denies LOF, VB, Ctx. care: Dr. Chamberlain: Review of records - all testing wnl/negative. 1) pr evious C/S x 3. 2) 09/12/18: patient underwent cardiology and neurology evaluations due to h/o synco pal episode 04/2018. Evaluations negative; incidental finding of Hgb 9 grams/dL. Patient was tranfused a total of 2 Units PRBCs - 1 unit each 09/12 and 09/13. P [place]: C/S x 3[place] [facility] [place] 42 weeks, female, 9lb 8oz, Breech, no GDM; no complications. 200 9, 39 weeks, 8lb 6oz. 2017, female, 6lb 12oz. 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 H/O PCOS. H/O myomata. Deneis abnormal Pap, STIs PMH: Obesity PSH: 2016, gastric surgery, [facility]; C/S x 3, D_C x 1 NKDA Meds: PNV, bariatric multivitamin complex Soc Hx: denies tobacco, illcit drug or EtOH use. x 17 years, R.N./psychatry - [facility] Hx: Mother alive 62 y.o. HTN, Father alive 64 y.o. Dm, HTN. Maternal and MGM - breast cancer P.E.: as above. Obese, in NAD. Awake, alert, oriented to time, person, and place. 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 , 38w 3d, previous C/S x 3, for elective repeat C/S. Category 1 celine Chamberlain to obtain surgical consents. Patient last ate 2200 hours. Patient is clinically stable . 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 8) Notify peds 9) Notify anesthesia 10) Patient on O.R. - Dr. Chamberlain is aware 5) Pelvic Type - PN: Not Done Extremities - PN: Abnormal Abdomen - PN: Normal Back - PN: Normal Breast - PN: Not Done Lungs - PN: Normal Heart - PN: Normal Thyroid - PN: Normal Neurologic - PN: Normal HEENT - PN: Normal General - PN: Normal FHR - Baseline A Provider: 135 Contraction Comments Provider: none Comments, ACOG Physical Exam: Abdomen: Gravid. Soft. Non tender. Healed Pfannenstiel. (+) redundant skin and tissue. Fundal height 41 cm Extremities: bilateral varicose veins; non tender. No edema, bilaterally All other systems reviewed and are negative Gestation - Est Wks by US: 38w 3d IP Hx Assessment: The History has been Reviewed Vital Signs Provider: Reviewed; Within Normal Limits IP Chief Complaint: Maternal discomfort NICHD Variability Prov Fetus A: Moderate 6-25bpm NICHD Accel Fetus A IP Provider: [id number] FHR Category Provider Fetus A: Category I NICHD Decel Fetus A IP Provider: None Dilatation, Provider: deferred Genitourinary Exam: Not Done DTRs - PN: Normal EGA AdmitDate IP: 38.3 IP Adm Impression: Term, intrauterine ; No Active Labor IP Admit Plan: Admit to unit; Initiate Section protocol Datetime: 09/12/2018 18:04 Membranes, Provider: Intact Datetime: 09/12/2018 15:36 Presentation-Admit: Vertex
[2018-09-20] MEDS ORDERED: Bupivacaine HCl 15 mg/2 ml Spinal Inj ONE (11:03)
[2018-09-20] MEDS ORDERED: Midazolam 2 MG/2 ML VIAL ONE ×2 (12:17→12:35)
[2018-09-20] MEDS ORDERED: Oxycodone/Acetaminophen 5/325 mg Tab PO PRN ×2 (13:43→13:46)
--- NOTE | 2018-09-20 13:50 | PCM.SURG1 ---
Surgeon's Initial Post Op Note - Surgeon's Notes Surgeon: Dr. Chamberlain Lineworker: Dr. Benjamin Type of Anesthesia: Spinal Anesthesia Administered By: Dr. Dickey Pre-Operative Diagnosis: 33 yo at 38 3/7 wks gestation for Repeat csection x4, lower abdominal pain Operative Findings: Repeat Csection x4, CATHY Post-Operative Diagnosis: Same as above Operation Performed: Repeat csection x4, CATHY Specimen/Specimens Removed: Placenta, cord ph Estimated Blood Loss: EBL {In ML}: 600 Blood Products Given: N/A Drains Used: No Drains Post-Op Condition: Good Date of Surgery/Procedure: 09/20/18 Time of Surgery/Procedure: 13:50
[2018-09-20] MEDS: Simethicone 80 mg Chewtab PO SCH ×2 (17:44→22:21)
[2018-09-21] MEDS: Lactated Ringer's 1,000 ML IV SCH (07:14)
[2018-09-21 08:08] LABS: HEMOGLOBIN 8.3 g/dL (11.0-16.0); MEAN CELL VOLUME 81.7 fL (81.0-99.0); MEAN CORPUSCULAR HEMOGLOBIN 27.2 pg (27.0-31.0); MEAN CORPUSCULAR HGB CONC 33.3 g/dL (33.0-37.0); MEAN PLATELET VOLUME 9.8 fL (7.2-11.7); RBC 3.04 Mil/uL (3.80-5.20); RED CELL DISTRIBUTION WIDTH 13.9 % (11.5-14.5); WHITE BLOOD COUNT 8.5 K/uL (4.8-10.8)
[2018-09-21] MEDS: Prenatal Multivit/Folic Acid/Iron Tab PO SCH (09:36)
[2018-09-21] MEDS: Simethicone 80 mg Chewtab PO SCH ×4 (09:36→21:41)
[2018-09-21] MEDS: Folic Acid/Ascorbic Acid/Ferrous Sulfate 1 Tab PO SCH (09:36)
[2018-09-21] MEDS ORDERED: Oxycodone/Acetaminophen 5/325 mg Tab PO PRN (13:44)
--- NOTE | 2018-09-21 14:49 | OBPPN ---
Datetime: 09/21/2018 11:14 PP Nausea Prov: Denies PP Flatus Prov: Yes PP BM Prov: No PP Breasts Prov: Normal PP Heart Prov: Normal PP Lungs Prov: Normal PP Abdomen/Uterus Prov: Normal PP Lochia Prov: Normal PP Vulva/Perineum Prov: Normal PP CVA Tenderness Prov: Normal PP Extremities Prov: Normal PP C/S Incision Prov: Normal PP Progress Prov: Normal PP Comments Phys Exam Prov: surgical wound clean, dry, intact, fundus above umbilicus about 1 finger breadth PP Impression Prov: Normal progression PP Plan Prov: Continue present management; consult PP Progress Note Prov: SUBJECTIVE: Patient was seen and examined at bedside this AM, as per Dr. Chamberlain request. She reports feeling well this AM and that her surgery went well yesterday. She states she is so far tolerating regular di et well without nausea/vomiting. She has been able to ambulate around her room without difficulty and was sitting out of bed in chair this AM on exam. She has not yet been ambulating in the hallway. She admits to flatus but has not had a BM yet. She is breast feeding currently without difficulty and st ates she has been attempting feeds every hour since last night. She has been increasing her fluid int mariya. OBJECTIVE: H/H decreased from 10.1/30.6 to 8.3/24.9 since admission. Denies any symptoms of Anemia Patient was noted to be anemic on prior admissions/exams and received 2 Units of PRBC's last week Otherwise normal exam findings as above. ASSESSEMENT: 33 yo F now s/p c/s POD 1. Acute Anemia superimposed on chronic anemia and asymptomatic Stable and Satisfactory condition and recovery PLAN: Continue feosol 325 mg daily. Continue bowel regimen with colace, simethicone. Encourage regular a mbulation including ambulating in hallway regularly. Encourage increased po water intake. Continue br east feeding consult. Patient seen, examined, and plan discussed with my attending Dr. Grimes covering for Dr. Bulmaro Regan, , PGY-1 IP PP Procedures: None Vital Signs Provider PP: Reviewed; Within Normal Limits
[2018-09-21] MEDS: Oxycodone/Acetaminophen 5/325 mg Tab PO PRN (21:42)
[2018-09-22] MEDS: Oxycodone/Acetaminophen 5/325 mg Tab PO PRN ×4 (08:44→17:42)
--- NOTE | 2018-09-22 09:42 | OBPPN ---
Datetime: 09/22/2018 09:35 PP Pain Prov: Within normal limits PP Nausea Prov: Denies PP Flatus Prov: No PP BM Prov: No PP Breasts Prov: Normal PP Abdomen/Uterus Prov: Normal PP Lochia Prov: Normal PP Vulva/Perineum Prov: Normal PP C/S Incision Prov: Normal PP Comments Phys Exam Prov: Dressing intact, dry and clean Etr: No calf tenderess PP Impression Prov: Normal progression; Pain PP Plan Prov: Continue present management PP Progress Note Prov: POD #2 Pt c/o dizziness since yesterday. No c/o palpitations, CP or defficulty breathing. Lochia minimal. No flatus. No vomiting. Tolerating diet well. VS- Stable A/P : POD #2. C/O Dizziness Reepat CBC/CBP Stat Hematology consult Pt will remove dressing while in the shower , once stable.Pt needs to be accompanied to the shower when symptoms improve. Possible blood transfusion/Fe transfusion Discussed with Dr Chamberlain. She will f/u any complications. IP PP Procedures: None Vital Signs Provider PP: Reviewed
[2018-09-22] MEDS: Folic Acid/Ascorbic Acid/Ferrous Sulfate 1 Tab PO SCH (13:07)
[2018-09-22] MEDS: Simethicone 80 mg Chewtab PO SCH ×3 (13:09→22:30)
[2018-09-22] MEDS: Prenatal Multivit/Folic Acid/Iron Tab PO SCH (13:14)
[2018-09-22 13:56] LABS: BASO % 0.3 % (0.0-2.0); EOS % 0.4 % (0.0-4.0); HEMOGLOBIN 8.2 g/dL (11.0-16.0); LYMPH # 1.3 K/uL (1.0-4.3); LYMPH % 13.7 % (20.0-40.0); MEAN CELL VOLUME 81.4 fL (81.0-99.0); MEAN CORPUSCULAR HEMOGLOBIN 27.7 pg (27.0-31.0); MEAN PLATELET VOLUME 9.3 fL (7.2-11.7); MONO # 0.6 K/uL (0.0-0.8); MONO % 6.6 % (0.0-10.0); NEUT # 7.4 K/uL (1.8-7.0); RBC 2.98 Mil/uL (3.80-5.20); RED CELL DISTRIBUTION WIDTH 14.1 % (11.5-14.5); WHITE BLOOD COUNT 9.4 K/uL (4.8-10.8)
[2018-09-22 14:20] LABS: ALBUMIN 2.9 g/dL (3.5-5.0); ALT/SGPT 19 U/L (9-52); AST/SGOT 30 U/L (14-36); BLOOD UREA NITROGEN 10 mg/dL (7-17); CALCIUM 8.5 mg/dl (8.6-10.4); GFR NON-AFRICAN AMERICAN > 60
[2018-09-22] MEDS ORDERED: Ferric Sodium Gluconat Complex 62.5 mg/5 ml Vial IVPB SCH (17:30)
[2018-09-22] MEDS: Ferric Sodium Gluconat Complex 125 MG in Sodium Chloride 0.9% 100 ML IVPB SCH (17:40)
[2018-09-22 17:58] VITALS: O2SAT 99
[2018-09-23] MEDS: Oxycodone/Acetaminophen 5/325 mg Tab PO PRN ×2 (04:52→09:55)
[2018-09-23 08:22] VITALS: BP 103/55; PULSE 85; RESP 18; TEMP 97.1
[2018-09-23] MEDS: Prenatal Multivit/Folic Acid/Iron Tab PO SCH (09:23)
[2018-09-23] MEDS: Simethicone 80 mg Chewtab PO SCH (09:23)
[2018-09-23] MEDS: Ferric Sodium Gluconat Complex 125 MG in Sodium Chloride 0.9% 100 ML IVPB SCH (09:27)
--- NOTE | 2018-09-23 12:10 | OBPPN ---
Datetime: 09/23/2018 11:45 PP Pain Prov: Within normal limits PP Nausea Prov: Denies PP Flatus Prov: Yes PP BM Prov: No PP Breasts Prov: Not Done PP Heart Prov: Normal PP Lungs Prov: Normal PP Abdomen/Uterus Prov: Normal PP Lochia Prov: Normal PP Vulva/Perineum Prov: Normal PP CVA Tenderness Prov: Normal PP Extremities Prov: Normal PP C/S Incision Prov: Normal PP Progress Prov: Normal PP Comments Phys Exam Prov: Fundus firm and non-tender. Below Umbilicus Incision with saul, dry, clean and intact PP Impression Prov: Normal progression PP Plan Prov: Continue present management; Discharge PP Progress Note Prov: Pt seen and examined, per Dr. Chamberlain request. POD # 3 S/P repeat C/S with CATHY Acute Anemia from acute blood loss and superimposed on chronic anemia Satellite Dish Installer on the case and recommen Fe infusion vs PO FE and given x 2 doses, as per her order Will f/up with Satellite Dish Installer as outpatient Breatfeeding Stable and Satisfactory condition and recovery Requesting D/C home IP PP Procedures Comments: Fe Infusion per Satellite Dish Installer (Annotations: Data stored by CPN on behalf o f user)
--- NOTE | 2018-10-01 08:58 | OP ---
PROCEDURE DATE: 09/20/2018 PREOPERATIVE DIAGNOSES: The patient with intrauterine at 38 weeks gestation, which was jennifer in labor and with a repeat section x5. POSTOPERATIVE DIAGNOSES: Repeat sections x5, multiple adhesions. PROCEDURE: A primary high transverse section. SURGEON: Dania Chamberlain MD POTTERY STRIPER: Daron Benjamin MD TYPE OF ANESTHESIA: Spinal. COMPLICATIONS: None. ESTIMATED BLOOD LOSS: 800 mL. FLUID: 1500 mL of LR. URINE OUTPUT: 200 mL of clear urine at the end of the procedure. INDICATIONS: A 6, para 5 at 38 weeks gestation that was having contractions on and off, for an elective repeat section. She was scanned in the office and demonstrated to have a low uterine segment less than 1 mm. FINDINGS: A female in cephalic presentation. Proration Clerk was present at the time of delivery, and Apgars were 9 and 9. She had a normal uterus. Multiple adhesions were encountered. The tubes looked normal and the ovary. The patient was informed of the risk factors, benefits, and alternatives of the procedure which included infection, bleeding, damage to surrounding organs and tissues, complications from anesthesia, and possible . She was also informed due to multiple C-sections. She was at risk for placenta accreta, percreta, increta, and she was also consented in the need of a supracervical hysterectomy. She was also informed that we do not recommend another . All the questions were answered. Informed consent was obtained. DESCRIPTION OF PROCEDURE: The patient was then taken to the operating room where a spinal anesthesia was found to be adequate. She was then prepped and draped in a normal sterile fashion, in the dorsal supine position with a leftward tilt. A Pfannenstiel skin incision was made with a scalpel and carried to the underlying layers of the fascia with the Bovie. The fascia was then excised in the midline. The incision extended laterally with the Bob scissors. The superior aspect of the fascial incision was then grasped with Jeannine clamps, elevated, and the underlying rectus muscle was dissected off bluntly. Attention was then turned to the inferior aspect of the incision which in a similar fashion was grasped, tented up with Jeannine clamps, and the rectus muscle was dissected off bluntly. The rectus muscle was then in the midline, and the peritoneum was then picked up with 2 Melissa clamps. It was noted and entered with 15 blade and encountered multiple adhesions, and lysis of adhesions were performed. The peritoneal incision was extended superiorly and inferiorly with good visualization of the bladder. The bladder blade was inserted. It was noted that she had multiple adhesions in the low uterine segment, so it was decided to do a high transverse. This incision was then extended laterally, so the uterine incision was then extended laterally with the bandage scissors. The bladder blade was then removed, and the 's head was delivered atraumatically. The pediatricians were present at the time of delivery, and the was handed off to the awaiting fixer supervisor. Cord gases were sent. At that time, the placenta was then removed manually. The uterus was exteriorized and cleaned off all clots and debris. A 40 units of Pitocin was given. The uterine incision was repaired with 1-0 Vicryl in a running locking fashion, a second layer of 1-0 Monocryl was used to obtain excellent hemostasis, and as well as a third layer. So the uterus was closed in three-layer closure. It was noted that she had multiple adhesions. Lysis of adhesions was performed. The gutters were cleaned off all clots and debris. The peritoneum was reapproximated using a 3-0 chromic. The fascia was reapproximated using 0 PDS in a running fashion. The skin was closed with saul and Monocryl. The patient tolerated the procedure well. Sponge, lap, and needle count were correct x2. The patient was then taken to recovery room in stable condition and instructed to follow up in the office in 1 week. Dania Chamberlain MD
== END 2018-09-23 12:30 | disposition home or self-care (01) | DRG 788 ==
LOC: C.EROB 08:24 → C.4D 09:08 → C.4M 15:23
PROVIDERS: ADMIT Obstetrics & Gynecology; ATTEND Obstetrics & Gynecology
PROC: 10D00Z1 Extraction of Products of Conception, Low, Open Approach (ICD-10-PCS; principal; 2018-09-20 10:00)
DX: O34.219 Maternal care for unspecified type scar from previous cesarean delivery (principal); Z3A.38 38 weeks gestation of pregnancy; Z37.0 Single live birth

== ENCOUNTER 2019-01-23 09:45 | Inpatient (IN) | payer OTHER ==
[2019-01-23 09:45] VITALS: BMI 36.3
[2019-01-23] MEDS ORDERED: Sodium Chloride 0.9% 1,000 ML IV ONE ×2 (10:17→12:40)
[2019-01-23] MEDS ORDERED: Sodium Chloride 0.9% 1,000 ML ONE ×2 (10:38→12:52)
[2019-01-23 10:41] LABS: BASO % 0.3 % (0.0-2.0); LYMPH # 0.8 K/uL (1.0-4.3); LYMPH % 11.9 % (20.0-40.0); MEAN CORPUSCULAR HEMOGLOBIN 25.3 pg (27.0-31.0); MEAN CORPUSCULAR HGB CONC 32.9 g/dL (33.0-37.0); MEAN PLATELET VOLUME 9.3 fL (7.2-11.7); MONO # 0.2 K/uL (0.0-0.8); MONO % 2.9 % (0.0-10.0); NEUT # 5.8 K/uL (1.8-7.0); NEUT % 84.9 % (50.0-75.0); RBC 4.46 Mil/uL (3.80-5.20); RED CELL DISTRIBUTION WIDTH 14.5 % (11.5-14.5); WHITE BLOOD COUNT 6.8 K/uL (4.8-10.8)
[2019-01-23 10:45] LABS: SQUAMOUS EPITHIAL 9 /hpf (0-5); URINE BACTERIA RARE (<OCC); URINE BILIRUBIN NEGATIVE (NEGATIVE); URINE BLOOD NEGATIVE (NEGATIVE); URINE CLARITY Hazy (Clear); URINE COLOR Amber (YELLOW); URINE GLUCOSE (UA) NORMAL (Normal); URINE LEUKOCYTE ESTERASE NEG Leu/uL (Negative); URINE PROTEIN 2+ mg/dL (NEGATIVE); URINE UROBILINOGEN NORMAL mg/dL (0.2-1.0)
[2019-01-23 10:56] LABS: ALB/GLOB RATIO 1.1 (1.0-2.1); ALBUMIN 4.5 g/dL (3.5-5.0); ALT/SGPT 171 U/L (9-52); AST/SGOT 200 U/L (14-36); BLOOD UREA NITROGEN 11 mg/dL (7-17); CALCIUM 9.4 mg/dl (8.6-10.4); GFR NON-AFRICAN AMERICAN > 60
[2019-01-23 10:59] LABS: HEMOGLOBIN 11.3 g/dL (11.0-16.0); MEAN CELL VOLUME 76.9 fL (81.0-99.0)
[2019-01-23 11:26] LABS: LIPASE 9378 U/L (23-300)
--- NOTE | 2019-01-23 11:38 | C.PDOC ---
History Of Present Illness 33 y/o female presents to the ER complaining of nausea, vomiting, and abdominal pain which began yesterday. Patient states that she initially had epigastric pain which has now developed into left periumbilical and radiates to her left flank. Patient report that she also developed loose stools overnight. She tried antacids without relief. Patient denies fever, chills, CP, SOB, cough, dysuria, hematuria. Patient has PShx of gastric bypass and x4. Time Seen by Provider: 01/23/19 10:06 Chief Complaint (Nursing): GI Problem History Per: Patient History/Exam Limitations: no limitations Onset/Duration Of Symptoms: Days Current Symptoms Are (Timing): Still Present Severity: Moderate Past Medical History Reviewed: Historical Data, Nursing Documentation, Vital Signs Vital Signs: Last Vital Signs Temp 98.6 F 01/23/19 10:08 Pulse 68 01/23/19 10:08 Resp 20 01/23/19 10:08 BP 126/82 01/23/19 10:08 Pulse Ox 100 01/23/19 10:08 Primary Care Provider: Non [facility] Provider, - Medical History PMH: No Chronic Diseases Other Surgeries: Hx of gastric bypass surgery and x 4 - [facility] Procedures EXTRACTION OF POC, LOW CERVICAL, OPEN APPROACH (09/20/18) Family History: States: No Known Family Hx - Social History Hx Alcohol Use: No Hx Substance Use: No - Immunization History Hx Tetanus Toxoid Vaccination: No Hx Influenza Vaccination: Yes Hx Pneumococcal Vaccination: No Review Of Systems Constitutional: Negative for: Fever, Chills Cardiovascular: Negative for: Chest Pain Respiratory: Negative for: Cough, Shortness of Breath Gastrointestinal: Positive for: Nausea, Vomiting, Abdominal Pain. Negative for: Diarrhea Genitourinary: Negative for: Dysuria, Hematuria Physical Exam - Physical Exam Appears: Well, Non-toxic, Other (uncomfortable appearing ) Skin: Normal Color, Warm, Dry Head: Normacephalic Eye(s): bilateral: Normal Inspection Oral Mucosa: Moist Neck: Supple Cardiovascular: Rhythm Regular, Murmur (2/6 systolic murmur) Respiratory: Normal Breath Sounds, No Rales, No Rhonchi, No Wheezing Gastrointestinal/Abdominal: Bowel Sounds, Soft, Tenderness (tenderness in left periumbilical area), No Guarding, No Rebound, Other (obese, (-) Interiano's, (-) McBurney's) Back: Normal Inspection, No CVA Tenderness Neurological/Psych: Oriented x3 ED Course And Treatment - Laboratory Results Result Diagrams: 01/26/19 11:15 01/26/19 11:15 Lab Results: Total Bilirubin 0.6 mg/dL (0.2-1.3) 01/23/19 10:37 AST 200 U/L (14-36) H D 01/23/19 10:37 ALT 171 U/L (9-52) H D 01/23/19 10:37 Alkaline Phosphatase 250 U/L (38-126) H D 01/23/19 10:37 Total Protein 8.7 g/dL (6.3-8.3) H 01/23/19 10:37 Albumin 4.5 g/dL (3.5-5.0) 01/23/19 10:37 Globulin 4.2 gm/dL (2.2-3.9) H 01/23/19 10:37 Albumin/Globulin Ratio 1.1 (1.0-2.1) 01/23/19 10:37 Lipase 9378 U/L (23-300) H 01/23/19 10:37 Urine Color Jenny (YELLOW) 01/23/19 10:37 Urine Clarity Hazy (Clear) 01/23/19 10:37 Urine pH 5.0 (5.0-8.0) 01/23/19 10:37 Ur Specific [place] 1.032 (1.003-1.030) H 01/23/19 10:37 Urine Protein 2+ mg/dL (NEGATIVE) H 01/23/19 10:37 Urine Glucose (UA) Normal mg/dL (Normal) 01/23/19 10:37 Urine Ketones 1+ mg/dL (NEGATIVE) H 01/23/19 10:37 Urine Blood Negative (NEGATIVE) 01/23/19 10:37 Urine Nitrate Negative (NEGATIVE) 01/23/19 10:37 Urine Bilirubin Negative (NEGATIVE) 01/23/19 10:37 Urine Urobilinogen Normal mg/dL (0.2-1.0) 01/23/19 10:37 Ur Leukocyte Esterase Neg [place]/uL (Negative) 01/23/19 10:37 Urine WBC (Auto) 1 /hpf (0-5) 01/23/19 10:37 Urine RBC (Auto) 2 /hpf (0-3) 01/23/19 10:37 Ur Squamous Epith Cells 9 /hpf (0-5) H 01/23/19 10:37 Urine Bacteria Rare (<OCC) 01/23/19 10:37 ECG: Interpreted By Me, Viewed By Me (NSR 66bpm, normal axis, no acute ST/T wave changes) ECG Interpretation: Normal O2 Sat by Pulse Oximetry: 100 (RA) Pulse Ox Interpretation: Normal - CT Scan/US abdominal US Other Rad Studies (CT/US): Read By Radiologist, Radiology Report Reviewed CT/US Interpretation: Approver2 : Report Date : 01/23/2019 14:23:00. My Commen t : . Date of service: 01/23/2019. HISTORY: elevated lipase, r/o gallstones. COMPARISON: None available. TECHNIQUE: Sonographic evaluation of the right upper quadrant of the abdomen. FINDINGS: LIVER: Measures 17.0 cm in length. Echogenic liver may be seen in setting of hepatic parenchymal disease or fatty infiltration. Gallbladder wall top-normal measuring approximately 3 mm. No focal hepatic mass identified. The main portal vein appears patent with normal directional flow. No intrahepatic bile duct dilatation. GALLBLADDER: Gallstones. No gallbladder wall thickening or pericholecystic edema. Sonographic Interiano's sign cannot be adequately assessed by the mill order scheduler as patient had been given medication prior to examination. COMMON BILE DUCT: Measures 1.3 cm. PANCREAS: Not well-visualized. RIGHT KIDNEY: Measures approximately 12.6 x 5.6 x 4.7 cm. No obstructing calculus or hydronephrosis. AORTA: Limited visualization appears grossly unremarkable. IVC: Limited visualization appears grossly unremarkable. OTHER FINDINGS: None . IMPRESSION: Echogenic liver may be seen in setting of hepatic parenchymal disease or fatty infiltration. Cholelithiasis. Gallbladder wall top normal approximately 3 mm. Sonographic Interiano's sign cannot be adequately assessed by the mill order scheduler as patient had been given medication prior to examination. Dilated common bile duct measures approximately 1.3 cm. Progress Note: Blood work, UA, Obs series ordered and reviewed. Patient given IV NS bolus, IV zofran, IV protonix. Lipase quite elevated - IV morphine, 2nd IV NS bolus ordered, and abdominal US ordered. - Physician Consult Information Physician Contacted: Gloria Dutton Outcome Of Conversation: Discussed patient with medicine hospital monitor, agrees with admission for pancreatitis (gallstone), cholelithiasis. Would like Dr. Yang for gen surgery - consult entered. Critical Care Time - Critical Care Note Total Time (in mins): 40 Documented critical care: time excludes all time spent performing seperately billable procedures. Disposition - Disposition Disposition: HOSPITALIZED Disposition Time: 15:13 Condition: STABLE - Clinical Impression Clinical Impression: Pancreatitis, Cholelithiasis, Gallstone pancreatitis - Scribe Statement The provider has reviewed the documentation as recorded by the Suryaibe Mayra Vanegas Provider Attestation: All medical record entries made by the Suryaibe were at my direction and personally dictated by me. I have reviewed the chart and agree that the record accurately reflects my personal performance of the history, physical exam, medical decision making, and the department course for this patient. I have also personally directed, reviewed, and agree with the discharge instructions and disposition. Decision To Admit - Pt Status Changed To: Hospital Disposition Of: Inpatient - Admit Certification Admit to Inpatient:: After my assessment, the patient will require hospitalization for at least two midnights. This is because of the severity of symptoms shown, intensity of services needed, and/or the medical risk in this patient being treated as an outpatient. - InPatient: Physician Admission Certification:: see notes - . Bed Request Type: Regular Admitting Physician: Gloria Dutton Patient Diagnosis: Pancreatitis, Cholelithiasis
[2019-01-23] MEDS ORDERED: Morphine 4 MG/ML VIAL ONE ×2 (13:14→15:49)
--- NOTE | 2019-01-23 14:26 | US ---
Date of service: 01/23/2019 HISTORY: elevated lipase, r/o gallstones COMPARISON: None available. TECHNIQUE: Sonographic evaluation of the right upper quadrant of the abdomen. FINDINGS: LIVER: Measures 17.0 cm in length. Echogenic liver may be seen in setting of hepatic parenchymal disease or fatty infiltration. Gallbladder wall top-normal measuring approximately 3 mm. No focal hepatic mass identified. The main portal vein appears patent with normal directional flow. No intrahepatic bile duct dilatation. GALLBLADDER: Gallstones. No gallbladder wall thickening or pericholecystic edema. Sonographic Interiano's sign cannot be adequately assessed by the stonework supervisor as patient had been given medication prior to examination. COMMON BILE DUCT: Measures 1.3 cm. PANCREAS: Not well-visualized. RIGHT KIDNEY: Measures approximately 12.6 x 5.6 x 4.7 cm. No obstructing calculus or hydronephrosis. AORTA: Limited visualization appears grossly unremarkable. IVC: Limited visualization appears grossly unremarkable. OTHER FINDINGS: None . IMPRESSION: Echogenic liver may be seen in setting of hepatic parenchymal disease or fatty infiltration. Cholelithiasis. Gallbladder wall top normal approximately 3 mm. Sonographic Interiano's sign cannot be adequately assessed by the stonework supervisor as patient had been given medication prior to examination. Dilated common bile duct measures approximately 1.3 cm.
[2019-01-23] MEDS ORDERED: Lactated Ringer's 1,000 ML IV ONE ×2 (15:31→16:07)
--- NOTE | 2019-01-23 16:07 | RAD ---
Date of service: 01/23/2019 PROCEDURE: Radiographs of the chest and abdomen (obstructive series) HISTORY: NAUSEA/VOMITING, H/O GASTRIC BYPASS COMPARISON: No prior. TECHNIQUE: AP radiograph of the chest, with upright and supine radiographs of the abdomen. 3 views obtained. FINDINGS: CHEST: Lungs: Clear. Cardiovascular: Normal size heart. No pulmonary vascular congestion. No aortic atherosclerotic calcification present Pleura: No pleural fluid. No pneumothorax. Other findings: None. ABDOMEN AND PELVIS: Bowel: There is a relative paucity of gas within bowel loops with questionable air-fluid levels at the left lower quadrant. Pattern is nonspecific. No free intra peritoneal gas collection is appreciable. Free air: None. Bones: Unremarkable. Other findings: Postoperative changes at the left upper quadrant suggest prior gastric surgery. IMPRESSION: Nonspecific bowel gas pattern. Limited bowel gas throughout the abdomen. Clinically correlate further. Postoperative changes left upper quadrant abdomen. No free intra peritoneal gas collection appreciable. Unremarkable chest radiograph.
--- NOTE | 2019-01-23 16:35 | CP.PCM.CON ---
<Naima Galeas - Last Filed: 01/23/19 16:44> History of Present Illness - History of Present Illness History of Present Illness: General surgery consult for Dr. Matthieu Galeas, PGY-2 Pt seen/examined at bedside in ED 15 33F w/PMH sig for hx of morbid obesity s/p gastric bypass consulted for epigastric abdominal pain x 7 days. Pt reports onset of pain in the evening after eating, worsened by eating greasy foods. Pain acutely worsened over past night and reported to ED for evaluation. Pain is severe, radiates to LUQ, intermittent. Admits to nausea, emesis (nb, nb) x 20, diarrhea x 6 (non bloody, yellow). Attempted to alleviate pain with Tums and Oxycodone- did not resolve. Was given Morphine with relief prior to examination. Denies TINAJERO, vision changes, dizziness, sore throat, cough, CP, changes in urinary habits, other complaints. In ED Lipase 9378. Ab U/S with cholelithiasis, no pericholecystic fluid. GB wall 3mm. CBD 1.3cm. No leukocytosis. Afebrile. PMH: hx morbid obesity PSH: Gastric bypass, x 4 All: NKDA SH: Denies ETOH, tobacco or illicit drug use FH: Mother had gallstones, grandmother had gallstones PMD: None currently Review of Systems - Review of Systems All systems: reviewed and no additional remarkable complaints except - Constitutional Constitutional: absent: Chills, Fever - EENT Ears: absent: Dizziness Nose/Mouth/Throat: absent: Sore Throat - Cardiovascular Cardiovascular: absent: Chest Pain - Respiratory Respiratory: absent: Cough - Gastrointestinal Gastrointestinal: Abdominal Pain, Diarrhea, Nausea, Vomiting. absent: Constipation, Hematemesis, Hematochezia, Melena - Genitourinary Genitourinary: absent: Hematuria - Musculoskeletal Musculoskeletal: absent: Numbness, Tingling - Integumentary Integumentary: absent: Rash - Neurological Neurological: absent: Weakness - Psychiatric Psychiatric: absent: Change in Appetite Past Patient History - Infectious Disease Hx of Infectious Diseases: None - Past Medical History & Family History Past Medical History?: No - Past Social History Smoking Status: Never Smoked - CARDIAC Hx Hypertension: No - PULMONARY Hx Respiratory Disorders: No - NEUROLOGICAL Hx Neurological Disorder: No - HEENT Hx HEENT Problems: No - RENAL Hx Chronic Kidney Disease: No - ENDOCRINE/METABOLIC Hx Endocrine Disorders: No - HEMATOLOGICAL/ONCOLOGICAL Hx Blood Disorders: No - INTEGUMENTARY Hx Dermatological Problems: No - MUSCULOSKELETAL/RHEUMATOLOGICAL Hx Musculoskeletal Disorders: No - GASTROINTESTINAL Hx Gastrointestinal Disorders: Yes Other/Comment: HX: GASTRIC BYPASS - GENITOURINARY/GYNECOLOGICAL Hx Genitourinary Disorders: No - PSYCHIATRIC Hx Depression: No Hx Substance Use: No - SURGICAL HISTORY Hx Surgeries: Yes Hx Section: Yes (X3) Hx Gastric Bypass Surgery: Yes (2016) Other/Comment: HX: GASTRIC BYPASS(2016) - ANESTHESIA Hx Anesthesia: Yes Hx Anesthesia Reactions: No Hx Malignant Hyperthermia: No Meds Allergies/Adverse Reactions: Allergies Allergy/AdvReac Type Severity Reaction Status Date / Time No Known Allergies Allergy Verified 01/23/19 09:49 - Medications Medications: Current Medications Lactated Ringer's (Lactated Ringer's) 1,000 mls @ 200 mls/hr IV .Q5H ONE Stop: 01/23/19 20:30 Physical Exam - Constitutional Appears: Non-toxic, No Acute Distress - Head Exam Head Exam: ATRAUMATIC, NORMAL INSPECTION, NORMOCEPHALIC - Eye Exam Eye Exam: EOMI, Normal appearance - ENT Exam ENT Exam: Mucous Membranes Moist, Normal Exam - Neck Exam Neck exam: Positive for: Full Rom, Normal Inspection - Respiratory Exam Respiratory Exam: NORMAL BREATHING PATTERN - Cardiovascular Exam Cardiovascular Exam: REGULAR RHYTHM, +S1, +S2 - GI/Abdominal Exam GI & Abdominal Exam: Soft, Tenderness (mild, epigastric). absent: Distended (obese), Guarding, Rebound, Rigid - Extremities Exam Extremities exam: Positive for: normal inspection - Neurological Exam Neurological exam: Alert, CN II-XII Intact, Oriented x3 - Psychiatric Exam Psychiatric exam: Normal Affect, Normal Mood - Skin Skin Exam: Dry, Intact, Normal Color, Warm Results - Vital Signs Recent Vital Signs: Last Vital Signs Temp 98.6 F 01/23/19 12:57 Pulse 72 01/23/19 12:57 Resp 18 01/23/19 15:40 BP 129/73 01/23/19 15:40 Pulse Ox 98 01/23/19 15:40 - Labs Result Diagrams: 01/23/19 10:37 01/23/19 10:37 Labs: Laboratory Results - last 24 hr 01/23/19 01/23/19 01/23/19 10:37 10:37 10:37 WBC 6.8 RBC 4.46 Hgb 11.3 D Hct 34.3 MCV 76.9 L D MCH 25.3 L MCHC 32.9 L RDW 14.5 Plt Count 290 D MPV 9.3 Neut % (Auto) 84.9 H Lymph % (Auto) 11.9 L [place] % (Auto) 2.9 Eos % (Auto) 0.0 Baso % (Auto) 0.3 Neut # (Auto) 5.8 Lymph # (Auto) 0.8 L [place] # (Auto) 0.2 Eos # (Auto) 0.0 Baso # (Auto) 0.0 Sodium 138 Potassium 4.0 Chloride 102 Carbon Dioxide 23 Anion Gap 17 BUN 11 Creatinine 0.5 L Est GFR ( Amer) > 60 Est GFR (Non-Af Amer) > 60 Random Glucose 156 H D Calcium 9.4 Total Bilirubin 0.6 AST 200 H D ALT 171 H D Alkaline Phosphatase 250 H D Total Protein 8.7 H Albumin 4.5 Globulin 4.2 H Albumin/Globulin Ratio 1.1 Lipase 9378 H Urine Color Jenny Urine Clarity Hazy Urine pH 5.0 Ur Specific [place] 1.032 H Urine Protein 2+ H Urine Glucose (UA) Normal Urine Ketones 1+ H Urine Blood Negative Urine Nitrate Negative Urine Bilirubin Negative Urine Urobilinogen Normal Ur Leukocyte Esterase Neg Urine WBC (Auto) 1 Urine RBC (Auto) 2 Ur Squamous Epith Cells 9 H Urine Bacteria Rare Urine HCG, Qual 01/23/19 11:25 WBC RBC Hgb Hct MCV MCH MCHC RDW Plt Count MPV Neut % (Auto) Lymph % (Auto) [place] % (Auto) Eos % (Auto) Baso % (Auto) Neut # (Auto) Lymph # (Auto) [place] # (Auto) Eos # (Auto) Baso # (Auto) Sodium Potassium Chloride Carbon Dioxide Anion Gap BUN Creatinine Est GFR ( Amer) Est GFR (Non-Af Amer) Random Glucose Calcium Total Bilirubin AST ALT Alkaline Phosphatase Total Protein Albumin Globulin Albumin/Globulin Ratio Lipase Urine Color Urine Clarity Urine pH Ur Specific [place] Urine Protein Urine Glucose (UA) Urine Ketones Urine Blood Urine Nitrate Urine Bilirubin Urine Urobilinogen Ur Leukocyte Esterase Urine WBC (Auto) Urine RBC (Auto) Ur Squamous Epith Cells Urine Bacteria Urine HCG, Qual Negative Assessment & Plan - Assessment and Plan (Free Text) Assessment: 33F w/PMH sig for hx of morbid obesity s/p remote gastric bypass with gallstone pancreatitis Plan: NPO IVF Pain control FU MRCP Recommend GI consult Surgical intervention pending imaging results and GI recs DW Dr. Celia Galeas, PGY-2 - Date & Time Date: 01/23/19 Time: 16:38 <En Yang - Last Filed: 01/26/19 22:58> Results - Vital Signs Recent Vital Signs: Last Vital Signs Temp 98 F 01/26/19 07:52 Pulse 75 01/26/19 07:52 Resp 20 01/26/19 07:52 BP 103/62 01/26/19 07:52 Pulse Ox 97 01/26/19 07:52 - Labs Result Diagrams: 01/26/19 11:15 01/26/19 11:15 Labs: Laboratory Results - last 24 hr 01/26/19 01/26/19 11:15 11:15 WBC 10.0 RBC 3.47 L Hgb 8.7 L Hct 26.8 L MCV 77.2 L MCH 25.2 L MCHC 32.6 L RDW 14.4 Plt Count 278 MPV 9.1 Neut % (Auto) 68.3 Lymph % (Auto) 25.3 [place] % (Auto) 5.9 Eos % (Auto) 0.2 Baso % (Auto) 0.3 Neut # (Auto) 6.8 Lymph # (Auto) 2.5 [place] # (Auto) 0.6 Eos # (Auto) 0.0 Baso # (Auto) 0.0 Sodium 137 Potassium 3.5 L Chloride 102 Carbon Dioxide 27 Anion Gap 12 BUN 9 Creatinine 0.5 L Est GFR ( Amer) > 60 Est GFR (Non-Af Amer) > 60 Random Glucose 130 H D Calcium 8.8 Total Bilirubin 0.3 AST 39 H D ALT 58 H Alkaline Phosphatase 111 Total Protein 6.4 Albumin 3.3 L Globulin 3.1 Albumin/Globulin Ratio 1.1 Attending/Attestation - Attestation I have personally seen and examined this patient.: Yes I have fully participated in the care of the patient.: Yes I have reviewed all pertinent clinical information: Yes Notes (Text): Pt was seen and examined at bedside Agree with above note and assessment Pt with abdominal pain and nausea Abdomen : Soft, ND, tender in RUQ Labs and Radiology reviewed Ass : Cholelithiasis with GS pancreatitis, CAD, S/P Gastric bypas Plan : Conservative management for now MRCP in am repeat labs in am c.w current mx Plan d.w pt in detail Risk and benefit explained in detail
[2019-01-23] MEDS: HYDROmorphone 0.5 mg/0.5 ml ISec IVP PRN (19:47)
[2019-01-23] MEDS: Lactated Ringer's 1,000 ML IV SCH (23:13)
[2019-01-24] MEDS: Lactated Ringer's 1,000 ML IV SCH ×2 (01:48→06:57)
[2019-01-24] MEDS: HYDROmorphone 0.5 mg/0.5 ml ISec IVP PRN ×3 (01:49→11:00)
[2019-01-24 07:31] LABS: BASO % 0.2 % (0.0-2.0); EOS % 0.5 % (0.0-4.0); HEMOGLOBIN 9.5 g/dL (11.0-16.0); LYMPH # 1.9 K/uL (1.0-4.3); LYMPH % 24.7 % (20.0-40.0); MEAN CELL VOLUME 77.1 fL (81.0-99.0); MEAN CORPUSCULAR HEMOGLOBIN 24.9 pg (27.0-31.0); MEAN CORPUSCULAR HGB CONC 32.3 g/dL (33.0-37.0); MEAN PLATELET VOLUME 9.2 fL (7.2-11.7); MONO # 0.5 K/uL (0.0-0.8); MONO % 6.1 % (0.0-10.0); NEUT # 5.4 K/uL (1.8-7.0); NEUT % 68.5 % (50.0-75.0); RBC 3.81 Mil/uL (3.80-5.20); RED CELL DISTRIBUTION WIDTH 14.5 % (11.5-14.5); WHITE BLOOD COUNT 7.8 K/uL (4.8-10.8)
[2019-01-24 07:53] LABS: ALB/GLOB RATIO 1.1 (1.0-2.1); ALBUMIN 3.3 g/dL (3.5-5.0); ALT/SGPT 91 U/L (9-52); AST/SGOT 64 U/L (14-36); CALCIUM 8.4 mg/dl (8.6-10.4); GFR NON-AFRICAN AMERICAN > 60; LIPASE 833 U/L (23-300)
[2019-01-24 08:01] LABS: BLOOD UREA NITROGEN 8 mg/dL (7-17)
--- NOTE | 2019-01-24 08:13 | CP.PCM.PN ---
<Naima Galeas - Last Filed: 01/24/19 08:10> Subjective - Date & Time of Evaluation Date of Evaluation: 01/24/19 Time of Evaluation: 08:11 - Subjective Subjective: General surgery progress note for Dr. Yang-Naima Galeas, PGY-2 Pt seen/examined at bedside Pt reports pain now a 3-4, much better controlled. Denies N & V, F & C, hunger. No other complaints at this time. Objective - Vital Signs/Intake and Output Vital Signs (last 24 hours): Temp Pulse Resp BP Pulse Ox 98.6 F 84 20 120/83 98 01/24/19 07:34 01/24/19 07:34 01/24/19 07:34 01/24/19 07:34 01/24/19 07:34 Intake and Output: 01/24/19 01/24/19 06:59 18:59 Intake Total 1600 Balance 1600 - Medications Medications: Current Medications Hydromorphone HCl (Dilaudid) 0.5 mg IVP Q4H PRN PRN Reason: Pain, moderate (4-7) Last Admin: 01/24/19 06:58 Dose: 0.5 mg Potassium Chloride 20 meq/ (Lactated Ringer's) 1,010 mls @ 200 mls/hr IV .Q5H3M [facility] Potassium Chloride (Potassium Chloride 10 Meq/100 Ml) 10 meq in 100 mls @ 100 mls/hr IVPB Q2H [facility] Stop: 01/24/19 17:14 Ondansetron HCl (Zofran Inj) 4 mg IVP Q4 PRN PRN Reason: Nausea/Vomiting - Labs Labs: 01/24/19 07:15 01/24/19 07:15 - Constitutional Appears: Non-toxic, No Acute Distress - Head Exam Head Exam: ATRAUMATIC, NORMAL INSPECTION, NORMOCEPHALIC - Eye Exam Eye Exam: EOMI, Normal appearance - ENT Exam ENT Exam: Mucous Membranes Moist, Normal Exam - Neck Exam Neck Exam: Full ROM, Normal Inspection - Respiratory Exam Respiratory Exam: NORMAL BREATHING PATTERN - Cardiovascular Exam Cardiovascular Exam: REGULAR RHYTHM, +S1, +S2 - GI/Abdominal Exam GI & Abdominal Exam: Soft, Tenderness (mild, epigastric). absent: Distended (obese), Firm, Guarding, Rigid, Rebound - Extremities Exam Extremities Exam: Normal Inspection - Neurological Exam Neurological Exam: Alert, Awake, CN II-XII Intact, Oriented x3 - Psychiatric Exam Psychiatric exam: Normal Affect, Normal Mood - Skin Skin Exam: Dry, Intact, Normal Color, Warm Assessment and Plan - Assessment and Plan (Free Text) Assessment: 33F w/gallstone pancreatitis, improving abdominal pain Plan: Lipase 833 from 9378 Cont NPO Replace electrolytes PRN Continue IVF Continue pain control FU MRCP FU GI recs Further surgical planning pending imaging results, likely OR 5/[address] Celia Galeas, PGY-2 <En Yang - Last Filed: 01/26/19 23:00> Objective - Vital Signs/Intake and Output Vital Signs (last 24 hours): Temp Pulse Resp BP Pulse Ox 98 F 75 20 103/62 97 01/26/19 07:52 01/26/19 07:52 01/26/19 07:52 01/26/19 07:52 01/26/19 07:52 - Labs Labs: 01/26/19 11:15 01/26/19 11:15 PT 13.0 SECONDS (9.7-12.2) H 01/25/19 08:09 INR 1.2 01/25/19 08:09 APTT 33.0 SECONDS (21-34) 01/25/19 08:09 Attending/Attestation - Attestation I have personally seen and examined this patient.: Yes I have fully participated in the care of the patient.: Yes I have reviewed all pertinent clinical information, including history, physical exam and plan: Yes Notes (Text): Pt was seen and examined at bedside Agree with above note and assessment Pt is improving clinically Lipase is trending ger MRCP is negative Plan d.w GI physician OR for Lap Cholecystectomy tomorrow Consent NPO, IVF Plan d.w pt in detail Risk and benefit explained in detail.
[2019-01-24] MEDS: Potassium Chloride 20 MEQ in Lactated Ringer's 1,000 ML IV SCH ×4 (10:12→17:34)
--- NOTE | 2019-01-24 10:48 | CP.PCM.CON ---
<Maria Victoria Parks - Last Filed: 01/24/19 10:40> History of Present Illness - History of Present Illness History of Present Illness: GI Fellow PGY 5 Consult Note This is a 33yF with a pmhx of morbid obesity s/p gastric bypass presenting for epigastric abdominal pain for the past one week, worsening three days ago with epigastric pain radiating RUQ/LUQ pain, nausea, vomiting, diarrhea. She reports initially she had GERD like symptoms but acutely worsened three days ago bringing her to the ER. Pt denies any episodes of pain, no issues eating greasy foods in the past. Pain acutely worsened over past night and reported to ED for evaluation. In ED Lipase 9378. Ab U/S with cholelithiasis, no pericholecystic fluid. GB wall 3mm. CBD 1.3cm. No leukocytosis. Afebrile. Pt denies prior history of pancreatitis, no alcohol abuse, no hx of elevated triglycerides or gallstones that she knew about. Since admission pain is improved, no further N/V/D. ROS: A 12pt ROS was negative except as above PMH: As stated in HPI PSH: Gastric bypass, x 4 SH: Denies ETOH, tobacco or illicit drug use FH: Mother had gallstones, grandmother had gallstones Past Patient History - Infectious Disease Hx of Infectious Diseases: None - Past Medical History & Family History Past Medical History?: No - Past Social History Smoking Status: Never Smoked - CARDIAC Hx Hypertension: No - PULMONARY Hx Respiratory Disorders: No - NEUROLOGICAL Hx Neurological Disorder: No - HEENT Hx HEENT Problems: No - RENAL Hx Chronic Kidney Disease: No - ENDOCRINE/METABOLIC Hx Endocrine Disorders: No - HEMATOLOGICAL/ONCOLOGICAL Hx Blood Disorders: No - INTEGUMENTARY Hx Dermatological Problems: No - MUSCULOSKELETAL/RHEUMATOLOGICAL Hx Musculoskeletal Disorders: No Hx Falls: No - GASTROINTESTINAL Hx Gastrointestinal Disorders: Yes Other/Comment: HX: GASTRIC BYPASS, - GENITOURINARY/GYNECOLOGICAL Hx Genitourinary Disorders: No - PSYCHIATRIC Hx Depression: No Hx Substance Use: No - SURGICAL HISTORY Hx Surgeries: Yes Hx Section: Yes (x4) Hx Gastric Bypass Surgery: Yes (2016) Other/Comment: HX: GASTRIC BYPASS(2016) - ANESTHESIA Hx Anesthesia: Yes Hx Anesthesia Reactions: No Hx Malignant Hyperthermia: No Has any member of the family had a problem w/ anesthesia?: No Meds Allergies/Adverse Reactions: Allergies Allergy/AdvReac Type Severity Reaction Status Date / Time No Known Allergies Allergy Verified 01/23/19 09:49 - Medications Medications: Current Medications Hydromorphone HCl (Dilaudid) 0.5 mg IVP Q4H PRN PRN Reason: Pain, moderate (4-7) Last Admin: 01/24/19 06:58 Dose: 0.5 mg Potassium Chloride 20 meq/ (Lactated Ringer's) 1,010 mls @ 200 mls/hr IV .Q5H3M [facility] Last Admin: 01/24/19 10:34 Dose: 200 mls/hr Potassium Chloride (Potassium Chloride 10 Meq/100 Ml) 10 meq in 100 mls @ 100 mls/hr IVPB Q2H [facility] Stop: 01/24/19 17:59 Last Admin: 01/24/19 09:17 Dose: 100 mls/hr Ondansetron HCl (Zofran Inj) 4 mg IVP Q4 PRN PRN Reason: Nausea/Vomiting Physical Exam - Constitutional Appears: Non-toxic, No Acute Distress - Head Exam Head Exam: ATRAUMATIC, NORMAL INSPECTION, NORMOCEPHALIC - Eye Exam Eye Exam: EOMI, Normal appearance, PERRL Pupil Exam: PERRL - ENT Exam ENT Exam: Mucous Membranes Dry - Neck Exam Neck exam: Positive for: Full Rom, Normal Inspection - Respiratory Exam Respiratory Exam: Clear to Auscultation Bilateral, NORMAL BREATHING PATTERN - Cardiovascular Exam Cardiovascular Exam: REGULAR RHYTHM, RRR, +S1, +S2 - GI/Abdominal Exam GI & Abdominal Exam: Normal Bowel Sounds, Soft, Tenderness. absent: Diminished Bowel Sounds, Distended, Firm, Guarding, Organomegaly - Rectal Exam Rectal Exam: Deferred - Extremities Exam Extremities exam: Positive for: full ROM, normal inspection - Back Exam Back exam: NORMAL INSPECTION - Neurological Exam Neurological exam: Alert, Oriented x3 - Psychiatric Exam Psychiatric exam: Normal Affect, Normal Mood - Skin Skin Exam: Dry, Intact, Normal Color, Warm Results - Vital Signs Recent Vital Signs: Last Vital Signs Temp 98.6 F 01/24/19 07:34 Pulse 84 01/24/19 07:34 Resp 20 01/24/19 07:34 BP 120/83 01/24/19 07:34 Pulse Ox 98 01/24/19 07:34 - Labs Result Diagrams: 01/24/19 07:15 01/24/19 07:15 Labs: Laboratory Results - last 24 hr 01/23/19 01/23/19 01/23/19 10:37 10:37 10:37 WBC 6.8 RBC 4.46 Hgb 11.3 D Hct 34.3 MCV 76.9 L D MCH 25.3 L MCHC 32.9 L RDW 14.5 Plt Count 290 D MPV 9.3 Neut % (Auto) 84.9 H Lymph % (Auto) 11.9 L [place] % (Auto) 2.9 Eos % (Auto) 0.0 Baso % (Auto) 0.3 Neut # (Auto) 5.8 Lymph # (Auto) 0.8 L [place] # (Auto) 0.2 Eos # (Auto) 0.0 Baso # (Auto) 0.0 Sodium 138 Potassium 4.0 Chloride 102 Carbon Dioxide 23 Anion Gap 17 BUN 11 Creatinine 0.5 L Est GFR ( Amer) > 60 Est GFR (Non-Af Amer) > 60 Random Glucose 156 H D Calcium 9.4 Phosphorus Magnesium Total Bilirubin 0.6 AST 200 H D ALT 171 H D Alkaline Phosphatase 250 H D Total Protein 8.7 H Albumin 4.5 Globulin 4.2 H Albumin/Globulin Ratio 1.1 Lipase 9378 H Urine Color Jenny Urine Clarity Hazy Urine pH 5.0 Ur Specific [place] 1.032 H Urine Protein 2+ H Urine Glucose (UA) Normal Urine Ketones 1+ H Urine Blood Negative Urine Nitrate Negative Urine Bilirubin Negative Urine Urobilinogen Normal Ur Leukocyte Esterase Neg Urine WBC (Auto) 1 Urine RBC (Auto) 2 Ur Squamous Epith Cells 9 H Urine Bacteria Rare Urine HCG, Qual 01/23/19 01/24/19 01/24/19 11:25 07:15 07:15 WBC 7.8 RBC 3.81 Hgb 9.5 L Hct 29.3 L MCV 77.1 L MCH 24.9 L MCHC 32.3 L RDW 14.5 Plt Count 234 MPV 9.2 Neut % (Auto) 68.5 Lymph % (Auto) 24.7 [place] % (Auto) 6.1 Eos % (Auto) 0.5 Baso % (Auto) 0.2 Neut # (Auto) 5.4 Lymph # (Auto) 1.9 [place] # (Auto) 0.5 Eos # (Auto) 0.0 Baso # (Auto) 0.0 Sodium 139 Potassium 3.3 L Chloride 105 Carbon Dioxide 26 Anion Gap 11 BUN 8 Creatinine 0.5 L Est GFR ( Amer) > 60 Est GFR (Non-Af Amer) > 60 Random Glucose 98 D Calcium 8.4 L Phosphorus 2.9 Magnesium 1.6 Total Bilirubin 0.6 AST 64 H D ALT 91 H D Alkaline Phosphatase 147 H D Total Protein 6.4 Albumin 3.3 L D Globulin 3.0 Albumin/Globulin Ratio 1.1 Lipase 833 H Urine Color Urine Clarity Urine pH Ur Specific [place] Urine Protein Urine Glucose (UA) Urine Ketones Urine Blood Urine Nitrate Urine Bilirubin Urine Urobilinogen Ur Leukocyte Esterase Urine WBC (Auto) Urine RBC (Auto) Ur Squamous Epith Cells Urine Bacteria Urine HCG, Qual Negative Assessment & Plan - Assessment and Plan (Free Text) Assessment: 1. Gallstone Pancreatitis 2. Elevated LFTs -Continue supportive care with aggressive IVF hydration -Recommend LR @200cc/hr -Improved BUN/HCT -If okay with surgery can start clear liquid diet -Will order lipid profile to r/o hypertriglyceridemia, no hx of alcohol abuse -Abd US reviewed -MRCP Pending -Since LFTs are trending down unlikely to be CBD stone, most likely passed stone, TBili wnl -If MRCP positive for CBD stone can do EUS/ERCP -If negative patient can go to OR for cholecystectomy with IOC -Will continue to follow pt closely <Eliezer Lind - Last Filed: 01/24/19 17:09> Meds - Medications Medications: Current Medications Hydromorphone HCl (Dilaudid) 0.5 mg IVP Q4H PRN PRN Reason: Pain, moderate (4-7) Last Admin: 01/24/19 11:00 Dose: 0.5 mg Potassium Chloride 20 meq/ (Lactated Ringer's) 1,010 mls @ 200 mls/hr IV .Q5H3M [facility] Last Admin: 01/24/19 13:00 Dose: Not Given Potassium Chloride (Potassium Chloride 10 Meq/100 Ml) 10 meq in 100 mls @ 100 mls/hr IVPB Q2H [facility] Stop: 01/24/19 17:59 Last Admin: 01/24/19 16:03 Dose: 100 mls/hr Ondansetron HCl (Zofran Inj) 4 mg IVP Q4 PRN PRN Reason: Nausea/Vomiting Last Admin: 01/24/19 13:50 Dose: 4 mg Results - Vital Signs Recent Vital Signs: Last Vital Signs Temp 98.3 F 01/24/19 16:14 Pulse 89 01/24/19 16:14 Resp 20 01/24/19 16:14 BP 143/86 01/24/19 16:14 Pulse Ox 99 01/24/19 16:14 - Labs Result Diagrams: 01/24/19 07:15 01/24/19 07:15 Labs: Laboratory Results - last 24 hr 01/24/19 01/24/19 01/24/19 07:15 07:15 16:04 WBC 7.8 RBC 3.81 Hgb 9.5 L Hct 29.3 L MCV 77.1 L MCH 24.9 L MCHC 32.3 L RDW 14.5 Plt Count 234 MPV 9.2 Neut % (Auto) 68.5 Lymph % (Auto) 24.7 [place] % (Auto) 6.1 Eos % (Auto) 0.5 Baso % (Auto) 0.2 Neut # (Auto) 5.4 Lymph # (Auto) 1.9 [place] # (Auto) 0.5 Eos # (Auto) 0.0 Baso # (Auto) 0.0 Sodium 139 Potassium 3.3 L Chloride 105 Carbon Dioxide 26 Anion Gap 11 BUN 8 Creatinine 0.5 L Est GFR ( Amer) > 60 Est GFR (Non-Af Amer) > 60 Random Glucose 98 D Calcium 8.4 L Phosphorus 2.9 Magnesium 1.6 Total Bilirubin 0.6 AST 64 H D ALT 91 H D Alkaline Phosphatase 147 H D Total Protein 6.4 Albumin 3.3 L D Globulin 3.0 Albumin/Globulin Ratio 1.1 Lipase 833 H Beta HCG, Quant < 2.39 Attending/Attestation - Attestation I have personally seen and examined this patient.: Yes I have fully participated in the care of the patient.: Yes I have reviewed all pertinent clinical information: Yes Notes (Text): 01/24/19 17:03 I have seen and examined patient with GI fellow. Agree with above documentation with the following additions. In brief, this is a 33 year old female with history of katie-en-y gastric bypass in 2016 with subsequent 130 pound weight loss who presents to hospital with complaint of progressive abdominal pain for the past one week. She describes sharp epigastric, 10/10 intensity pain rad iating to RUQ/L flank which became significantly worse over the past 3 days. She notes associated nausea and non-bloody emesis but denies fever/chills, weight loss, rectal bleeding, or change in bowel habits. No similar prior episodes, no prior endoscopic evaluation. Abdominal pain Acute gallstone pancreatitis Transaminitis MRCP imaging reviewed by me showing no choledocholithiasis, CBD 8mm - Clear liquid diet as tolerated - Continue with IVF hydration therapy, conservative management, pain control - Anti-emetic therapy PRN - LFTs trending down, continue to monitor - Patient planned for cholecystectomy by surgical team tomorrow, follow up recommendations - Will continue to monitor patient clinical course
--- NOTE | 2019-01-24 11:09 | CARD ---
APPROVED REPORT Date of service: 01/23/2019 EKG Measurement Heart [id number] <Conclusion> Normal sinus rhythm Normal ECG
--- NOTE | 2019-01-24 11:11 | HP ---
HISTORY OF PRESENT ILLNESS: This is a 33-year-old white female with no significant past medical history, presented to emergency room with symptoms of upper abdominal pain radiates to the back for one day duration. Symptoms were associated with nausea and vomiting x2. The patient was evaluated in the emergency room and she was found to have gallstone pancreatitis. The patient also found to have dilated common bile duct of 1.3 cm. Lipase was 9000. The patient denied to have any previous similar symptoms and she had no knowledge of gallbladder stones before. FAMILY HISTORY: Noncontributory. SOCIAL HISTORY: No history of smoking, EtOH or substance abuse. REVIEW OF SYSTEMS: Other review of systems negative. ALLERGIES: NO KNOWN ALLERGIES. MEDICATIONS: Only vitamin. PHYSICAL EXAMINATION: GENERAL: The patient is in bed, not in cardiopulmonary in any distress at time of this examination as the patient was given pain medicine. VITAL SIGNS: Blood pressure 126/82, temperature 98.6, respiratory rate 20, and pulse 68. HEENT: Pupils equal, reactive to light. Normal-appearing mucosa of the conjunctivae, oropharynx, and nasal membrane mucosa. NECK: Supple. No JVD, no carotid bruit. No lymph node. No thyromegaly. CHEST AND LUNGS: Bilateral symmetrical expansion. Good air exchange. No rales, no rhonchi. CARDIOVASCULAR SYSTEM: PMI not localized. S1, S2. No additional sounds. ABDOMEN: Normoactive bowel sounds. Tenderness in the epigastric area and the right upper quadrant area. No organomegaly. No masses. EXTREMITIES: No cyanosis, no clubbing, no edema. CENTRAL NERVOUS SYSTEM: Alert, awake, oriented x3. No neurological deficit could be appreciated. LABORATORY DATA: Again, blood work showed lipase 9378, AST 200, ALT 171. ASSESSMENT: Gallstone pancreatitis. PLAN: IV fluids 200 mL per hour, GI and surgical consult. Pain medications as needed. Keep the patient n.p.o. and advance diet as tolerated. Gloria Dutton MD
--- NOTE | 2019-01-24 12:10 | MRI ---
MRCP Indication: CBD 1.3cm, gallstone panc Technique: Multiplanar, multisequence MR images of the abdomen were obtained, including heavily T2 weighted MRCP images of the biliary system. Rotating maximum intensity projection images of the biliary system were generated. A total of 595 images were submitted for review. Comparison: Limited abdominal ultrasound performed 01/23/19 Findings: Hepatic steatosis. Cholelithiasis including probable small stone at the gallbladder neck. Probable gallbladder wall thickening/pericholecystic edema. There is no intrahepatic biliary ductal dilatation. The common bile duct appears dilated measuring approximately 8 mm in diameter. The pancreatic duct does not appear dilated. No filling defects are seen in the common bile duct or pancreatic duct. Pancreatic prominence likely related to edema/pancreatitis; recommend correlation with amylase and lipase. The limited visualized noncontrast adrenal glands, kidneys, and spleen appear grossly unremarkable. No bulky abdominal lymphadenopathy is seen. No ascites. No acute osseous abnormality is detected Impression: Cholelithiasis including probable small gallstone at the gallbladder neck. Evidence of gallbladder wall thickening/pericholecystic edema. Dilated common bile duct measures approximately 8 mm. No focal filling defect appreciated within the common bile duct or pancreatic duct. Pancreatic prominence may be related to edema/pancreatitis; recommend correlation with amylase and lipase. Hepatic steatosis.
--- NOTE | 2019-01-24 18:37 | PN ---
DATE: 01/24/2019 DAILY PROGRESS NOTE SUBJECTIVE: The patient is seen today on 01/24/2019. Abdominal pain is much less from 8-9 to a 2-3. The patient had an MRI that did not show any stone in the common bile duct. PHYSICAL EXAMINATION: VITAL SIGNS: Blood pressure 143/86, temperature 98.3, respiratory rate 20 and pulse 89. HEENT: Pupils equal, reactive to light. Normal-appearing mucosa of the conjunctivae, oropharynx and nasal membrane mucosa. NECK: Supple. No JVD. No carotid bruit. No lymph nodes. No thyromegaly. CHEST AND LUNGS: Bilateral symmetrical expansion. Good air exchange. No rales, no rhonchi. CARDIOVASCULAR SYSTEM: PMI not localized. S1, S2. No additional sounds. ABDOMEN: Normoactive bowel sounds. No tenderness. No organomegaly. No masses. EXTREMITIES: No cyanosis, no clubbing, no edema. 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 No neurological deficit could be appreciated. ASSESSMENT: 1. Gallstone pancreatitis. 2. Cholelithiasis. PLAN: The patient is scheduled for cholecystectomy by Dr. Yang. Continue IV fluids. Gloria Dutton MD
[2019-01-25] MEDS: Potassium Chloride 20 MEQ in Lactated Ringer's 1,000 ML IV SCH ×3 (00:58→08:23)
[2019-01-25 08:22] LABS: BASO % 0.5 % (0.0-2.0); EOS # 0.1 K/uL (0.0-0.7); EOS % 0.8 % (0.0-4.0); HEMOGLOBIN 8.8 g/dL (11.0-16.0); LYMPH % 25.8 % (20.0-40.0); MEAN CELL VOLUME 76.8 fL (81.0-99.0); MEAN CORPUSCULAR HEMOGLOBIN 25.2 pg (27.0-31.0); MEAN CORPUSCULAR HGB CONC 32.9 g/dL (33.0-37.0); MEAN PLATELET VOLUME 9.3 fL (7.2-11.7); MONO # 0.6 K/uL (0.0-0.8); MONO % 7.9 % (0.0-10.0); RBC 3.5 Mil/uL (3.80-5.20); RED CELL DISTRIBUTION WIDTH 14.5 % (11.5-14.5); WHITE BLOOD COUNT 7.7 K/uL (4.8-10.8)
[2019-01-25 08:26] LABS: INR 1.2
[2019-01-25 08:40] LABS: ALB/GLOB RATIO 1.1 (1.0-2.1); ALBUMIN 3.2 g/dL (3.5-5.0); ALT/SGPT 65 U/L (9-52); AST/SGOT 31 U/L (14-36); BLOOD UREA NITROGEN 5 mg/dL (7-17); CALCIUM 8.8 mg/dl (8.6-10.4); GFR NON-AFRICAN AMERICAN > 60; LIPASE 154 U/L (23-300)
[2019-01-25] MEDS ORDERED: Bupivacaine Liposomal Inj 20 ml INFIL ONE (10:24)
--- NOTE | 2019-01-25 10:24 | CP.PCM.PN ---
<Maria Victoria Parks - Last Filed: 01/25/19 10:22> Subjective - Date & Time of Evaluation Date of Evaluation: 01/25/19 Time of Evaluation: 09:00 - Subjective Subjective: GI Fellow PGY5 Progress Note Pt seen and evaluated at bedside, pt reports that abdominal pain is better from yesterday. No fevers, chills, N/V. ROS: A 12pt ROS was negative except as above. Objective - Vital Signs/Intake and Output Vital Signs (last 24 hours): Temp Pulse Resp BP Pulse Ox 97.7 F 64 20 115/72 98 01/25/19 07:35 01/25/19 07:35 01/25/19 07:35 01/25/19 07:35 01/25/19 07:35 Intake and Output: 01/25/19 01/25/19 06:59 18:59 Intake Total 1600 2000 Balance 1600 1999 - Medications Medications: Current Medications Hydromorphone HCl (Dilaudid) 0.5 mg IVP Q4H PRN PRN Reason: Pain, moderate (4-7) Last Admin: 01/24/19 11:00 Dose: 0.5 mg Potassium Chloride 20 meq/ (Lactated Ringer's) 1,010 mls @ 200 mls/hr IV .Q5H3M CRESENCIO Last Admin: 01/25/19 08:23 Dose: 200 mls/hr Ketorolac Tromethamine (Toradol) 15 mg IVP Q6 PRN PRN Reason: Pain, moderate (4-7) Last Admin: 01/25/19 01:07 Dose: 15 mg Ondansetron HCl (Zofran Inj) 4 mg IVP Q4 PRN PRN Reason: Nausea/Vomiting Last Admin: 01/24/19 13:50 Dose: 4 mg Pantoprazole Sodium (Protonix Inj) 40 mg IVP DAILY CRESENCIO Last Admin: 01/25/19 09:45 Dose: Not Given - Labs Labs: 01/25/19 08:09 01/25/19 08:09 PT 13.0 SECONDS (9.7-12.2) H 01/25/19 08:09 INR 1.2 01/25/19 08:09 APTT 33.0 SECONDS (21-34) 01/25/19 08:09 - Constitutional Appears: Non-toxic, No Acute Distress - Head Exam Head Exam: ATRAUMATIC, NORMAL INSPECTION, NORMOCEPHALIC - Eye Exam Eye Exam: EOMI, Normal appearance, PERRL - ENT Exam ENT Exam: Mucous Membranes Dry - Neck Exam Neck Exam: Full ROM, Normal Inspection - Respiratory Exam Respiratory Exam: Clear to Ausculation Bilateral, NORMAL BREATHING PATTERN - Cardiovascular Exam Cardiovascular Exam: REGULAR RHYTHM, RRR, +S1, +S2 - GI/Abdominal Exam GI & Abdominal Exam: Soft, Tenderness, Normal Bowel Sounds. absent: Distended, Firm, Guarding - Rectal Exam Rectal Exam: Deferred - Extremities Exam Extremities Exam: Full ROM, Normal Inspection - Back Exam Back Exam: NORMAL INSPECTION - Neurological Exam Neurological Exam: Alert, Awake, Oriented x3 - Psychiatric Exam Psychiatric exam: Normal Affect, Normal Mood - Skin Skin Exam: Dry, Intact, Normal Color, Warm Assessment and Plan - Assessment and Plan (Free Text) Assessment: 1. Gallstone Pancreatitis 2. Elevated LFTs -Continue supportive care with IVF hydration -Improved BUN/HCT and lipase -Abd US reviewed -MRCP negative for CBD stone -LFTs are trending down -Patient to OR for cholecystectomy today -Please call with any questions or concerns <Eliezer Lind - Last Filed: 01/25/19 11:24> Objective - Vital Signs/Intake and Output Vital Signs (last 24 hours): Temp Pulse Resp BP Pulse Ox 97.7 F 64 20 115/72 98 01/25/19 07:35 01/25/19 07:35 01/25/19 07:35 01/25/19 07:35 01/25/19 07:35 Intake and Output: 01/25/19 01/25/19 06:59 18:59 Intake Total 1600 1999 Balance 1600 1999 - Medications Medications: Current Medications Hydromorphone HCl (Dilaudid) 0.5 mg IVP Q4H PRN PRN Reason: Pain, moderate (4-7) Last Admin: 01/24/19 11:00 Dose: 0.5 mg Potassium Chloride 20 meq/ (Lactated Ringer's) 1,010 mls @ 200 mls/hr IV .Q5H3M CRESENCIO Last Admin: 01/25/19 08:23 Dose: 200 mls/hr Ketorolac Tromethamine (Toradol) 15 mg IVP Q6 PRN PRN Reason: Pain, moderate (4-7) Last Admin: 01/25/19 01:07 Dose: 15 mg Ondansetron HCl (Zofran Inj) 4 mg IVP Q4 PRN PRN Reason: Nausea/Vomiting Last Admin: 01/24/19 13:50 Dose: 4 mg Pantoprazole Sodium (Protonix Inj) 40 mg IVP DAILY CRESENCIO Last Admin: 01/25/19 09:45 Dose: Not Given - Labs Labs: 01/25/19 08:09 01/25/19 08:09 PT 13.0 SECONDS (9.7-12.2) H 01/25/19 08:09 INR 1.2 01/25/19 08:09 APTT 33.0 SECONDS (21-34) 01/25/19 08:09 Attending/Attestation - Attestation I have personally seen and examined this patient.: Yes I have fully participated in the care of the patient.: Yes I have reviewed all pertinent clinical information, including history, physical exam and plan: Yes Notes (Text): 01/25/19 11:23 Patient seen and examined with GI fellow. No acute events overnight, she is planned for OR intervention today. Abdominal pain improved compared to ye , she denies nausea, vomiting, fever/chills. Review of vitals from today are normal. Abdominal pain Gallstone pancreatitis Transaminitis - NPO - Continue with IVF hydration, supportive care - LFTs continue to trend down, monitor - Patient scheduled for cholecystectomy today, follow up surgical recommendations - No further planned GI intervention, will sign off case. Please reconsult as necessary, thank you.
[2019-01-25] MEDS ORDERED: Sodium Chloride 0.9% 40 ML IV ONE (10:32)
[2019-01-25] MEDS ORDERED: Lidocaine/Epinephrine 1% 1:100000 10 ML IJ ONE (10:32)
[2019-01-25] MEDS ORDERED: Bupivacaine 0.25% 20 ML INJ IJ ONE (10:32)
[2019-01-25] MEDS ORDERED: ceFAZolin 1 gm in NS 2 GM/200 ML BAG IVPB ONE (10:32)
[2019-01-25] MEDS ORDERED: Rocuronium 10 mg/ml (5 ml) ONE (10:57)
[2019-01-25] MEDS ORDERED: Propofol 10 mg/ml Inj (20 ML) ONE (11:25)
[2019-01-25] MEDS ORDERED: Midazolam 2 MG/2 ML VIAL ONE (11:26)
[2019-01-25] MEDS ORDERED: ePHEDrine 50 mg/ml Inj ONE (12:40)
[2019-01-25] MEDS ORDERED: Neostigmine 1:1000 (1 mg/ml) Inj ONE (13:26)
--- NOTE | 2019-01-25 13:47 | PCM.SURG1 ---
Surgeon's Initial Post Op Note - Surgeon's Notes Surgeon: Dr. Yang School Bus Operator: Merchant PAREDESY2, Jordana SHANNON Type of Anesthesia: General Endo Anesthesia Administered By: Dr. Leonardo Pre-Operative Diagnosis: Acute Cholecystitis Operative Findings: Large, distended, Inflammed gallbladder. Critical View of Saftey Achieved. for details see op note Post-Operative Diagnosis: Acute on Chronic Cholecystitis Operation Performed: 1. Robotic Cholecystectomy. 2. TAP Block Specimen/Specimens Removed: 1. Gallbladder Estimated Blood Loss: EBL {In ML}: 5 Drains Used: No Drains Post-Op Condition: Good Date of Surgery/Procedure: 01/25/19 Time of Surgery/Procedure: 13:46
[2019-01-25] MEDS ORDERED: HYDROmorphone 0.5 mg/0.5 ml ISec ONE (14:07)
[2019-01-25] MEDS: HYDROmorphone 0.5 mg/0.5 ml ISec IVP PRN ×3 (14:07→23:59)
[2019-01-25] MEDS: Lactated Ringer's 1,000 ML IV SCH ×2 (15:50→21:26)
[2019-01-25 16:34] VITALS: RESP 20
[2019-01-25] MEDS: Simethicone 80 mg Chewtab PO PRN (18:31)
[2019-01-26] MEDS ORDERED: Simethicone 80 mg Chewtab PO SCH
[2019-01-26] MEDS: Lactated Ringer's 1,000 ML IV SCH (06:02)
[2019-01-26 07:54] VITALS: BP 103/62; PULSE 75; TEMP 98
--- NOTE | 2019-01-26 08:00 | CP.PCM.PN ---
<Eliel Metcalf - Last Filed: 01/26/19 07:56> Subjective - Date & Time of Evaluation Date of Evaluation: 01/26/19 Time of Evaluation: 07:56 - Subjective Subjective: Surgery Progress note- Dr. Yang Some nausea overnight, relieved w/ Reglan and Zofran. This AM have more of an appetite. Denies current nausea, vomiting. + OOB and ambulating, voiding freely. Denies fevers, chills, chest pain, shortness of breath. Minimal pain around incisions. Dressing C/D/I no strikethrough Objective - Vital Signs/Intake and Output Vital Signs (last 24 hours): Temp Pulse Resp BP Pulse Ox 98 F 75 20 103/62 97 01/26/19 07:52 01/26/19 07:52 01/26/19 07:52 01/26/19 07:52 01/26/19 07:52 - Medications Medications: Current Medications Hydromorphone HCl (Dilaudid) 0.5 mg IVP Q4H PRN PRN Reason: Pain, moderate (4-7) Last Admin: 01/25/19 23:59 Dose: 0.5 mg Lactated Ringer's (Lactated Ringer's) 1,000 mls @ 140 mls/hr IV .Q7H9M CRESENCIO Stop: 01/26/19 11:25 Last Admin: 01/26/19 06:02 Dose: 140 mls/hr Ketorolac Tromethamine (Toradol) 15 mg IVP Q6 PRN PRN Reason: Pain, moderate (4-7) Last Admin: 01/25/19 21:24 Dose: 15 mg Ondansetron HCl (Zofran Inj) 4 mg IVP Q4 PRN PRN Reason: Nausea/Vomiting Last Admin: 01/25/19 22:08 Dose: 4 mg Pantoprazole Sodium (Protonix Inj) 40 mg IVP DAILY [facility] Last Admin: 01/25/19 09:45 Dose: Not Given Simethicone (Mylicon Chew Tab) 80 mg PO Q6 PRN PRN Reason: Flatulence Last Admin: 01/25/19 18:31 Dose: 80 mg - Labs Labs: 01/25/19 08:09 01/25/19 08:09 PT 13.0 SECONDS (9.7-12.2) H 01/25/19 08:09 INR 1.2 01/25/19 08:09 APTT 33.0 SECONDS (21-34) 01/25/19 08:09 - Constitutional Appears: Non-toxic, No Acute Distress - Head Exam Head Exam: ATRAUMATIC - Eye Exam Eye Exam: EOMI. absent: Scleral icterus - ENT Exam ENT Exam: Mucous Membranes Moist - Respiratory Exam Respiratory Exam: NORMAL BREATHING PATTERN. absent: Accessory Muscle Use, Respiratory Distress - Cardiovascular Exam Cardiovascular Exam: REGULAR RHYTHM. absent: Bradycardia, Tachycardia - GI/Abdominal Exam GI & Abdominal Exam: Soft, Tenderness (tenderness around incions, however minimal) - Extremities Exam Extremities Exam: absent: Calf Tenderness - Neurological Exam Neurological Exam: Alert, Awake, Oriented x3 - Psychiatric Exam Psychiatric exam: Normal Affect - Skin Skin Exam: Intact, Warm Assessment and Plan - Assessment and Plan (Free Text) Assessment: 33F s/p Robotic Cholecystectomy POD#1 Plan: - f/u AM Labs - diet as tolerated - pain control w/ PO - pending lab results cleared for discharge from surgery - further [facility] <En Yang - Last Filed: 01/26/19 23:01> Objective - Vital Signs/Intake and Output Vital Signs (last 24 hours): Temp Pulse Resp BP Pulse Ox 98 F 75 20 103/62 97 01/26/19 07:52 01/26/19 07:52 01/26/19 07:52 01/26/19 07:52 01/26/19 07:52 - Labs Labs: 01/26/19 11:15 01/26/19 11:15 PT 13.0 SECONDS (9.7-12.2) H 01/25/19 08:09 INR 1.2 01/25/19 08:09 APTT 33.0 SECONDS (21-34) 01/25/19 08:09 Attending/Attestation - Attestation I have personally seen and examined this patient.: Yes I have fully participated in the care of the patient.: Yes I have reviewed all pertinent clinical information, including history, physical exam and plan: Yes Notes (Text): Pt is improved clinically Advance diet to soft diet Can be DC home f.u as out pt Plan d.w pt in detail
[2019-01-26] MEDS ORDERED: oxyCODONE 5 mg Immediate Release Tab PO PRN (08:16)
[2019-01-26] MEDS ORDERED: Tramadol 25 mg PO PRN (08:16)
[2019-01-26] MEDS: Simethicone 80 mg Chewtab PO PRN (09:56)
[2019-01-26] MEDS ORDERED: Pantoprazole 40 mg EC Tab PO SCH (10:00)
[2019-01-26 11:21] LABS: BASO % 0.3 % (0.0-2.0); EOS % 0.2 % (0.0-4.0); HEMOGLOBIN 8.7 g/dL (11.0-16.0); LYMPH # 2.5 K/uL (1.0-4.3); LYMPH % 25.3 % (20.0-40.0); MEAN CELL VOLUME 77.2 fL (81.0-99.0); MEAN CORPUSCULAR HEMOGLOBIN 25.2 pg (27.0-31.0); MEAN CORPUSCULAR HGB CONC 32.6 g/dL (33.0-37.0); MEAN PLATELET VOLUME 9.1 fL (7.2-11.7); MONO # 0.6 K/uL (0.0-0.8); MONO % 5.9 % (0.0-10.0); NEUT # 6.8 K/uL (1.8-7.0); NEUT % 68.3 % (50.0-75.0); RBC 3.47 Mil/uL (3.80-5.20); RED CELL DISTRIBUTION WIDTH 14.4 % (11.5-14.5)
[2019-01-26 11:41] LABS: ALB/GLOB RATIO 1.1 (1.0-2.1); ALBUMIN 3.3 g/dL (3.5-5.0); ALT/SGPT 58 U/L (9-52); AST/SGOT 39 U/L (14-36); BLOOD UREA NITROGEN 9 mg/dL (7-17); CALCIUM 8.8 mg/dl (8.6-10.4); GFR NON-AFRICAN AMERICAN > 60
[2019-01-26] MEDS ORDERED: Potassium Chloride 20 mEq ER Tab PO ONE (13:30)
--- NOTE | 2019-01-26 17:01 | CP.PCM.PN ---
Subjective - Date & Time of Evaluation Date of Evaluation: 01/26/19 Time of Evaluation: 11:00 - Subjective Subjective: alert and orientedx3 , denies acute pain, tolerating diet, NAD. Objective - Vital Signs/Intake and Output Vital Signs (last 24 hours): Temp Pulse Resp BP Pulse Ox 98 F 75 20 103/62 97 01/26/19 07:52 01/26/19 07:52 01/26/19 07:52 01/26/19 07:52 01/26/19 07:52 - Labs Labs: 01/26/19 11:15 01/26/19 11:15 PT 13.0 SECONDS (9.7-12.2) H 01/25/19 08:09 INR 1.2 01/25/19 08:09 APTT 33.0 SECONDS (21-34) 01/25/19 08:09 Assessment and Plan - Assessment and Plan (Free Text) Assessment: 33 for year old female admitted with abdominal pain, s/p LAP che, seen and examined. Alert and orientedx3, ambulatory. Denies acute pain or distress. Cleared by surgery, discussed with DR Dutton, plan to discharge home and to follow up with PMD and surgery in 1 week.
--- NOTE | 2019-01-26 21:56 | PN ---
DATE: 01/25/2019 SUBJECTIVE: The patient is seen postoperatively in recovery room, status post laparoscopic cholecystectomy. PHYSICAL EXAMINATION: VITAL SIGNS: Blood pressure was 110/70, temperature 98.2, respiratory rate 18, and pulse 72. HEENT: Pupils equal and reactive to light. Normal-appearing mucosa of the conjunctivae, oropharynx and nasal membrane mucosa. NECK: Supple. No JVD. No carotid bruit. No lymph node. No thyromegaly. CHEST AND LUNGS: Bilateral symmetrical expansion. Good air exchange. No rales. No rhonchi. CARDIOVASCULAR SYSTEM: PMI not localized. S1 and S2. No additional sounds. ABDOMEN: Normoactive bowel sounds. No tenderness. No organomegaly. No masses. EXTREMITIES: No cyanosis. No clubbing. No edema. CENTRAL NERVOUS SYSTEM: The patient is postoperative and drowsy. Moves all extremities. ASSESSMENT: 1. Status post laparoscopic cholecystectomy. 2. Gallstone pancreatitis. PLAN: Continue IV fluid and advanced diet as tolerated and as per surgical team. Pain management. [facility] MD [place]
[2019-01-26 23:40] VITALS: O2SAT 100
--- NOTE | 2019-01-27 06:43 | OP ---
PROCEDURE DATE: 01/25/2019 PREOPERATIVE DIAGNOSES: 1. Acute cholecystitis with cholelithiasis. 2. Possible postoperative adhesions, status post gastric bypass. 3. Morbid obesity. POSTOPERATIVE DIAGNOSES: 1. Acute cholecystitis with cholelithiasis. 2. Possible postoperative adhesions, status post gastric bypass. 3. Morbid obesity. PROCEDURES DONE: 1. Robotic cholecystectomy. 2. Robotic extensive lysis of adhesions. 3. Laparoscopic bilateral transversus abdominis plane block placement. 4. Robotic indocyanine green fluoroscopy. SURGEON: En Yang MD HORSE DOCTOR: SARA Rodriguez ANESTHESIA: General endotracheal tube anesthesia. ESTIMATED BLOOD LOSS: Around 10 mL. DRAIN: None. PATHOLOGY: The gallbladder with the gallstone was sent for the pathology. COMPLICATIONS: None. INTRAOPERATIVE FINDINGS: The patient had extensive right upper quadrant inflammation as well as the postoperative adhesions due to previous gastric bypass. DESCRIPTION OF PROCEDURE: On intraoperative steps, this is a 33-year-old female who was admitted with severe gallstone pancreatitis with acute cholecystitis. The patient consented for laparoscopic-assisted robotic cholecystectomy. After resolution of the pancreatitis, the patient was brought to the OR and placed supine on the operating table. After induction of the anesthesia, the abdomen was prepped and draped in the usual sterile fashion. A supraumbilical transverse incision was made using the open technique. Peritoneal cavity was entered. Pneumo was created. Another 3-8 mm port was placed in the upper abdomen. Robot was brought in. Camera arm as well as arm-1 and arm-2 were docked. Gallbladder appeared to be extremely thickened, edematous as well as enlarged. There were extensive peritoneal adhesions. First, adhesiolysis was done. After that, the duodenum as well as the colon was firmly adhesed. An enterolysis was done in order to identify the Calot's triangle. The cystic duct and cystic artery were identified. Intraoperative Firefly was used to identify the ductal anatomy. The cystic duct and common bile duct junction was identified. A top-down approach was done. Critical view of the safety was identified. The cystic duct and cystic artery were clipped at three places and cut in between two clips in the gallbladder. The gallbladder was dissected free from the gallbladder fossa, taken in an EndoCatch bag, taken out through the umbilical port site and sent of the table for the pathology. Now, the bilateral laparoscopic TAP block was given. The 30:30 mL of Exparel with saline was injected into the transverse abdominis muscle plane area. After proper TAP block bilaterally, all the ports were taken out under vision. Pneumo was deflated. The umbilical port site was closed in multiple layers; the fascia with an interrupted 0 Vicryl as well as 0 Prolene sutures and the skin with a 4-0 Monocryl. Dry sterile dressing was applied. The patient tolerated the procedure well. Count of instrument and gauze was correct. There was no apparent complication. The patient was extubated in the OR and sent to the postanesthesia care unit in stable condition. En Yang MD
--- NOTE | 2019-01-27 10:23 | DS ---
REASON FOR ADMISSION: This is a 33-year-old female who was admitted for gallstone pancreatitis. HOSPITAL COURSE: The patient was admitted to medical floor and she was started on IV fluids. The patient had an abdominal ultrasound that showed gallstones, cholelithiasis. The patient had a GI consult done and MRCP showed that there is no stone in the common bile duct. The patient had a surgical consult and underwent laparoscopic cholecystectomy. Postoperative course was uneventful and the patient was discharged in a stable condition to follow with surgery. FINAL DIAGNOSES: Gallstone pancreatitis, cholelithiasis, status post laparoscopic cholecystectomy. Gloria Dutton MD
== END 2019-01-26 14:05 | disposition home or self-care (01) | DRG 418 ==
LOC: C.ER 09:45 → C.9E 15:13 → C.3T 16:00 → C.5S 01-24 13:37
PROVIDERS: ADMIT Internal Medicine; ATTEND Internal Medicine
PROC: 0DNW4ZZ Release Peritoneum, Percutaneous Endoscopic Approach (ICD-10-PCS; 2019-01-25)
PROC: 8E0W4CZ Robotic Assisted Procedure of Trunk Region, Percutaneous Endoscopic Approach (ICD-10-PCS; 2019-01-25)
PROC: 3E0T3BZ Introduction of Anesthetic Agent into Peripheral Nerves and Plexi, Percutaneous Approach (ICD-10-PCS; 2019-01-25)
PROC: BF131ZZ Fluoroscopy of Gallbladder and Bile Ducts using Low Osmolar Contrast (ICD-10-PCS; 2019-01-25)
PROC: 0FT44ZZ Resection of Gallbladder, Percutaneous Endoscopic Approach (ICD-10-PCS; principal; 2019-01-25 12:15)
DX: K85.10 Biliary acute pancreatitis without necrosis or infection (principal); K80.12 Calculus of gallbladder with acute and chronic cholecystitis without obstruction; K66.0 Peritoneal adhesions (postprocedural) (postinfection); K21.9 Gastro-esophageal reflux disease without esophagitis; I25.10 Atherosclerotic heart disease of native coronary artery without angina pectoris; E66.01 Morbid (severe) obesity due to excess calories; Z68.34 Body mass index [BMI] 34.0-34.9, adult; Z98.84 Bariatric surgery status; Z98.891 History of uterine scar from previous surgery